=== PATIENT | male | born 1960 | race Caucasian/White ===

== ENCOUNTER 2017-06-28 23:30 | Emergency (ER) | payer OTHER ==
[~2017-06-28] VITALS: Ht 180.3 cm; Wt 102.1 kg
[~2017-06-28 23:30] MED LIST: ALPRAZOLAM2 MG PO; AMLODIPINE BESY10 MG PO; ATENOLOL; ATENOLOL100 MG PO; ATENOLOL50 MG PO; ATORVASTATIN CA10 MG PO; CYCLOBENZAPRINE10 MG PO; FLUOXETINE HCL40 MG PO; LISINOPRIL40 MG PO; LOSARTAN POTAS100 MG PO; MELOXICAM7.5 MG PO; METFORMIN HCL500 MG PO; MONTELUKAST SOD10 MG PO; NORCO 10-325 T1 EACH PO; NORCO 10MG-325MG1 EA PO; OMEPRAZOLE40 MG PO; PAROXETINE HCL20 MG PO; PEGASYS180 MCG/01; PRAVACHOL40 MG PO; PRAVASTATIN SOD40 MG PO; RIBAPAK PO; RITALIN10 MG PO; SOVALDI PO; VIT B COMPLEX PO; XANAX XR2 MG PO
--- OUTSIDE RECORDS SUMMARY | 2017-06-28 23:32 | XMS REPORT ---
Author Author [facility] Address Unknown Phone Unavailable Care Team Providers Care Taxi Dancer Name Role Phone MARY BUTT Unavailable Unavailable LOFTON HILARY Unavailable Unavailable Problems This patient has no known problems. Allergies, Adverse Reactions, Alerts This patient has no known allergies or adverse reactions. Medications This patient has no known medications. Results Test Description Test Time Test Comments Text Results Atomic Results Result Comments CT BRAIN WO [place] [address] Patient Name: DARI JAVIER MR #: [id number] : 1960 Age/Sex: 56/M Req #: [id number] Adm Physician: Ordered by: MARY BUTT MD Report #: [id number] Location: ER Room/Bed: Procedure: [id number] CT/CT BRAIN WO Exam Date: Exam Time: REPORT STATUS: Signed Examination: CT BRAIN WITHOUT CONTRAST History: Confusion. Altered mental status. Comparison studies:Head CT performed January 31, 2017 Technique: Axial images were obtained from the skull base to the vertex. Coronal and sagittal images reconstructed from the axial data. Intravenous contrast: None Findings: Scalp: No abnormalities. Bones: No fractures, blastic or lytic lesions. Brain sulci: Appropriate for age. Ventricles: Normal in size and configuration. No hydrocephalus. Extra-axial space: No abnormalities. Parenchyma: Again demonstrated is hypodensity in the anterior limb of the left internal capsule. No masses , hemorrhage, or acute cortical based vascular insults. Sellar/suprasellar region: No abnormalities. Craniocervical junction: Patent foramen magnum. No Chiari one malformation. Incidental findings: Atherosclerotic calcification of the cavernous and supraclinoid internal carotid arteries. Impression: 1. No new or acute intracranial abnormality. No change from prior head CT performed January 31, 2017. 2. Unchanged chronic lacunar infarct in the left internal capsule. Signed by: Dr. Aparna Macdonald M.D. on 02/05/2017 11:51 AM Dictated By: APARNA MACDONALD MD 1151 Transcribed By: ISATU on 02/05/17 1151 COPY TO: MARY BUTT MD RENAL RETROPERITONEAL COMP [place] [address] Patient Name: DARI JAVIER MR #: [id number] : 1960 Age/Sex: 56/M Req #: [id number] Adm Physician: HILARY LOFTON MD Ordered by: RUBY LOFTON MD Report #: [id number] Location: [facility] Room/Bed: [place] [address] Procedure: [id number] US/US RENAL RETROPERITONEAL COMP Exam Date: 02/01/17 Exam Time: 1612 REPORT STATUS: Signed EXAM: Renal Ultrasound INDICATION: COMPARISON: Abdominal ultrasound from 10/16/[address] abdomen and pelvis from 06/19/2013 TECHNIQUE: Transverse and longitudinal images of the kidneys and bladder were obtained. FINDINGS: Right Kidney: Length: 10.7 cm Appearance: Normal echogenicity. Collecting system: No hydronephrosis Stones: None Cyst/Mass: None Left Kidney: Length: 11.2 cm Appearance: Normal echogenicity. Collecting system: No hydronephrosis Stones: None Cyst/Mass: None Bladder: Normal IMPRESSION: Normal renal ultrasound exam. Signed by: Dr. Shmuel Mina M.D. on 02/01/2017 5:55 PM Dictated By: SHMUEL MINA MD 54 Transcribed By: ISATU on 02/01/171754 COPY TO: RUBY LOFTON MD CT BRAIN WO [place] [address] Patient Name: DARI JAVIER MR #: [id number] : 1960 Age/Sex: 56/M Req #: [id number] Adm Physician: Ordered by: MARY BUTT MD Report #: [id number] Location: ER Room/Bed: Procedure: [id number] CT/CT BRAIN WO Exam Date: 01/31/17 Exam Time: 1830 REPORT STATUS: Signed Examination: CT BRAIN WITHOUT CONTRAST History:Dizziness. Comparison studies:Head CT dated 07/30/2013 Technique : Axial images were obtained from the skull base to the vertex. Coronal and sagittal images reconstructed from the axial data. Intravenous contrast: None Findings: Scalp: No abnormalities. Bones: No fractures, blastic or lytic lesions. Brain sulci: Appropriate for age. Ventricles: Normal in size and configuration. No hydrocephalus. Extra-axial space: No abnormalities. Parenchyma: Again demonstrated is hypodensity of the anterior limb of the left internal capsule. No masses, hemorrhage, or acute or chronic cortical based vascular insults. Sellar/suprasellar region : No abnormalities. Craniocervical junction: Patent foramen magnum. No Chiari one malformation. Incidental findings: None. Impression: 1. No new or acute intracranial abnormalities. No change from prior head CT dated 07/30/2013. 2. Chronic lacunar infarct of the left internal capsule. Signed by: Dr. Aparna Macdonald M.D. on 01/31/2017 6:50 PM Dictated By: APARNA ALARCON MD 49 Transcribed By: ISATU on 01/31/171849 COPY TO: MARY BUTT MD CHEST SINGLE (PORTABLE) [place] [address] Patient Name: DARI JAVIER MR #: [id number] : 1960 Age/Sex: 56/M Req #: [id number] Adm Physician: Ordered by: MARY BUTT MD Report #: [id number] Location: ER Room/Bed: Procedure: [id number] DX/CHEST SINGLE (PORTABLE) Exam Date: 01/31/17 Exam Time: 1830 REPORT STATUS: Signed PROCEDURE: A single AP view of the chest. COMPARISON: Chest radiograph 10/16/2016. INDICATIONS: DIZZY, CHEST PAIN FINDINGS: Lines/tubes: None. Lungs: The lungs are moderately inflated and clear. There is no evidence of pneumonia or pulmonary edema. Pleura: There is no pleural effusion or pneumothorax. Heart and mediastinum: The heart and the mediastinum are unremarkable. Bones: No acute bony abnormality. IMPRESSION: No acute cardiopulmonary disease. Dictated by: Jesus Villa M.D. on 01/31/2017 at 19:08 Electronically approved by: Jesus Villa M.D. on 01/31/2017 at 19:08 Dictated By: JESUS VILLA MD 07 Transcribed By: WU on 01/31/171907 COPY TO: MARY BUTT MD
[2017-06-28] MEDS ORDERED: HYDRALAZINE HCL 20 MG/ML VIAL IV STA (23:42)
[2017-06-28] MEDS ORDERED: CLONIDINE HCL 0.1 MG TAB PO ONE (23:45)
[2017-06-29] LABS: BASOPHILS # (AUTO) 0.1 (0.0-0.1); BASOPHILS % 0.6 % (0.0-1.0); EOSINOPHILS # (AUTO) 0.5 (0.0-0.4); EOSINOPHILS % 5.3 % (0.0-6.0); HEMATOCRIT 39.2 % (38.2-49.6); HEMOGLOBIN 14.1 g/dL (14.0-18.0); LYMPHOCYTES % 30.9 % (18.0-39.1); MEAN CORPUSCULAR HEMOGLOBIN 30.2 pg (28-32); MEAN CORPUSCULAR VOLUME 83.9 fL (81-99); MONOCYTES # (AUTO) 0.7 (0.2-0.8); MONOCYTES % 7.3 % (4.4-11.3); NEUTROPHILS # (AUTO) 5.3 (2.1-6.9); NEUTROPHILS % 55.5 % (38.7-80.0); PLATELET COUNT 112 x10e3/uL (140-360); RED BLOOD COUNT 4.67 x10e6/uL (4.3-5.7); RED CELL DISTRIBUTION WIDTH 13.2 % (11.7-14.4)
[2017-06-29 00:29] LABS: ALANINE AMINOTRANSFERASE 23 IU/L (0-55); ALBUMIN 3.9 g/dL (3.5-5.0); ALBUMIN/GLOBULIN RATIO 1.1 (0.8-2.0); ALKALINE PHOSPHATASE 133 IU/L (40-150); ANION GAP 17.8 mmol/L (8-16); BLOOD UREA NITROGEN 19 mg/dL (7-26); CALCIUM 9.9 mg/dL (8.4-10.2); CARBON DIOXIDE 19 mmol/L (22-29); CHLORIDE 109 mmol/L (98-107); CREATINE KINASE 87 IU/L (30-200); GLUCOSE 181 mg/dL (74-118); POTASSIUM 3.8 mmol/L (3.5-5.1); SODIUM 142 mmol/L (136-145)
--- NOTE | 2017-06-29 00:47 | Diagnostic Imaging Report ---
EXAMINATION: CHEST SINGLE (PORTABLE) INDICATION: Elevated blood pressure COMPARISON: None FINDINGS: TUBES and LINES: None. LUNGS: Lungs are well inflated. Lungs are clear. There is no evidence of pneumonia or pulmonary edema. PLEURA: No pleural effusion or pneumothorax. HEART AND MEDIASTINUM: The cardiomediastinal silhouette is unremarkable. BONES AND SOFT TISSUES: No acute osseous lesion. Soft tissues are unremarkable. UPPER ABDOMEN: No free air under the diaphragm. IMPRESSION: No acute thoracic abnormality. Signed by: Dr. Corby Gonzalez M.D. on 06/29/2017 12:43 AM
[2017-06-29 00:56] LABS: BUN/CREATININE RATIO 16 (6-25); CREATININE, SERUM 1.11 mg/dL (0.72-1.25); EST GLOMERULAR FILTRATION RATE > 60 ML/MIN (60-)
[2017-06-29 01:09] VITALS: BP 178/98
== END 2017-06-29 01:18 | disposition home or self-care (01) ==
LOC: ER 23:30
DX: I10 Essential (primary) hypertension (principal); B19.20 Unspecified viral hepatitis C without hepatic coma; K74.60 Unspecified cirrhosis of liver; F41.9 Anxiety disorder, unspecified
CPT/HCPCS: 36415; 71045; 80053; 82550; 82553; 84484; 85025; 93005; 99284; J0360

== ENCOUNTER → 2017-08-15 | Outpatient (CLI) | payer OTHER ==
--- NOTE | 2017-08-15 11:43 | Diagnostic Imaging Report ---
EXAM: Renal Duplex Ultrasound INDICATION: Ranal artery stenosis? COMPARISON: Ultrasound Renal Doppler dated 02/01/2017. TECHNIQUE: Color Doppler and waveform spectral analysis were obtained of the right and left kidneys. FINDINGS: Aorta PSV = 53.7 cm/sec Right Kidney: Length: 10.9 cm Appearance: Normal echogenicity. Collecting system: No hydronephrosis Stones: None Cyst/Mass: None Main renal artery PSV: Proximal = 166 cm/sec Mid = 97.8 cm/sec Distal = 99 cm/sec Intrarenal (segmental or interlobar) arteries: Acceleration time: Normal Resistive index: Normal RA PSV/aorta PSV ratio (RAR) = 3.1 Left Kidney: Length: 11.8 cm Appearance: Normal echogenicity. Collecting system: No hydronephrosis Stones: None Cyst/Mass: None Main renal artery PSV: Proximal = 118 cm/sec Mid = 117 cm/sec Distal = 95.3 cm/sec Intrarenal (segmental or interlobar) arteries: Acceleration time: Normal Resistive index: Normal RA PSV/aorta PSV ratio (RAR) = 2.2 Main Renal Veins: Flow Present Bladder: Normal. The prostate is not enlarged. IMPRESSION: No evidence of renal artery stenosis or renal thrombosis. Signed by: Dr. Young Pepe M.D. on 08/15/2017 11:39 AM
== END | disposition home or self-care (01) ==
LOC: US 07:21
PROVIDERS: ATTEND Internal Medicine
DX: I95.1 Orthostatic hypotension (principal); R09.89 Other specified symptoms and signs involving the circulatory and respiratory systems
CPT/HCPCS: 93976

== ENCOUNTER → 2018-01-07 | Outpatient (CLI) | payer MEDICARE ==
--- NOTE | 2018-01-07 11:31 | Diagnostic Imaging Report ---
PROCEDURE: L-SPINE COMPLETE AND TWO VIEW RADIOGRAPHS OF THE SACRUM. COMPARISON: None. INDICATIONS: FALL LOWER BACK PAIN FINDINGS: The lumbar spine is in anatomic alignment without evidence of fracture, spondylolisthesis, or spondylolysis. Vertebral body heights are maintained. Mild degenerative disc and facet degenerative changes, most pronounced in the lower lumbar spine. The paraspinal soft tissues are normal. Atherosclerotic aortic calcifications. Dedicated sacral radiographs demonstrate no evidence of fracture or malalignment. CONCLUSION: No acute radiographic abnormalities in the lumbar spine or sacrum. Mild degenerative disc and facet degenerative changes in the lower lumbar spine. Aortic atherosclerosis. Dictated by: CARMEN BHARDWAJ M.D. on 01/07/2018 at 11:40 Electronically approved by: CARMEN BHARDWAJ M.D. on 01/07/2018 at 11:40
--- NOTE | 2018-01-07 11:32 | Diagnostic Imaging Report ---
PROCEDURE:SACRUM X-RAY (TWO VIEWS) COMPARISON:None. FINDINGS/IMPRESSION: No acute radiographic abnormality. Please refer to lumbar spine/sacral radiograph report for further information. Dictated by: CARMEN BHARDWAJ M.D. on 01/07/2018 at 11:41 Electronically approved by: CAREMN BHARDWAJ M.D. on 01/07/2018 at 11:41
== END ==
LOC: RAD 08:20
PROVIDERS: ATTEND Internal Medicine
DX: S39.92XA Unspecified injury of lower back, initial encounter (principal); W19.XXXA Unspecified fall, initial encounter
CPT/HCPCS: 72110; 72220

== ENCOUNTER 2018-05-22 01:40 | Emergency (ER) | payer MEDICARE, OTHER ==
[~2018-05-22] VITALS: Ht 180.3 cm; Wt 102.1 kg
--- OUTSIDE RECORDS SUMMARY | 2018-05-22 01:42 | XMS REPORT | Continuity of Care Document ---
Author Author [facility] Address Unknown Phone Unavailable Problems Problem Status Onset Date Classification Date Reported Comments Source 718.85 - JT CLEO N Active 08/25/2012 GARRY Joyce Benign prostatic hyperplasia with urinary retention Active Problem 06/29/2017 [facility] Dehydration Active Problem 06/29/2017 [facility] Hypotension due to medication Active Problem 06/29/2017 [facility] Pneumonia Active Problem 06/29/2017 [facility] Medications Medication Details Route Status Patient Instructions Ordering Provider Order Date Source Losartan Potassium 100 Mg Tablet, 100 Mg Oral Daily Active 02/03/2017 [facility] Meloxicam 7.5 Mg Tablet, 7.5 Mg Oral Daily Active 02/03/2017 [facility] Alprazolam 2 Mg Tablet, 1 Mg Oral Twice A Day Active 10/16/2016 [facility] Cyclobenzaprine Hcl 10 Mg Tablet, 10 Mg Oral Daily Active 10/16/2016 [facility] Fluoxetine Hcl 40 Mg Capsule, 40 Mg Oral Daily Active 10/16/2016 [facility] Lisinopril 40 Mg Tablet, 40 Mg Oral Daily Active 10/16/2016 [facility] Methylphenidate Hcl (Ritalin) 10 Mg Tablet, 20 Mg Oral Daily Active 10/16/2016 [facility] Omeprazole 40 Mg Capsule.dr, 40 Mg Oral Bid Prior To Meals Active 10/16/2016 [facility] Peginterferon Alban-2A (Pegasys) 180 Mcg/0.5 Ml Kit, 1 Syr As Directed Active 10/16/2016 [facility] Pravastatin Sodium 40 Mg Tablet, 40 Mg Oral Daily Active 10/16/2016 [facility] Ribavirin (Ribapak) 600 Mg Tab.ds.pk, 600 Mg Oral Twice A Day Active 10/16/2016 [facility] Sovaldi 400 Mg Tab, 400 Mg Oral Active 10/16/2016 [facility] Atenolol , Active 08/15/2012 [facility] Amlodipine Besylate 10 Mg Tablet Daily Active [facility] Atenolol 100 Mg Tablet Daily Active [facility] Atorvastatin Calcium 10 Mg Tablet Today At 9:00PM Active [facility] Metformin Hcl 500 Mg Tablet Daily Active [facility] Montelukast Sodium 10 Mg Tablet Daily Active [facility] Paroxetine Hcl 20 Mg Tablet Daily Active [facility] Allergies, Adverse Reactions, Alerts Substance Category Reaction Severity Reaction type Status Date Reported Comments Source Immunizations Immunization Date Given Site Status Last Updated Comments Source Results Order Name Results Value Reference Range Date Interpretation Comments Source Automated blood basophil count (count/volume) Automated blood basophil count (count/volume) 0.1 0.0 - 0.1 06/28/2017 [facility] Automated blood basophil count as percentage of total leukocytes Automated blood basophil count as percentage of total leukocytes 0.6 0.0 - 1.0 06/28/2017 [facility] Automated blood eosinophil count Automated blood eosinophil count 0.5 0.0 - 0.4 06/28/2017 [facility] Automated blood eosinophil count as percentage of total leukocytes Automated blood eosinophil count as percentage of total leukocytes 5.3 0.0 - 6.0 06/28/2017 [facility] Automated blood hematocrit (volume fraction) Automated blood hematocrit (volume fraction) 39.2 38.2 - 49.6 06/28/2017 [facility] Automated blood lymphocyte count as percentage ot total leukocytes Automated blood lymphocyte count as percentage ot total leukocytes 30.9 18.0 - 39.1 06/28/2017 [facility] Automated blood monocyte count as percentage of total leukocytes Automated blood monocyte count as percentage of total leukocytes 7.3 4.4 - 11.3 06/28/2017 [facility] Automated blood neutrophil count Automated blood neutrophil count 5.3 2.1 - 6.9 06/28/2017 [facility] Automated blood platelet count (count/volume) Automated blood platelet count (count/volume) 112 140 - 360 06/28/2017 [facility] Automated blood segmented neutrophil count as percentage of total leukocytes Automated blood segmented neutrophil count as percentage of total leukocytes 55.5 38.7 - 80.0 06/28/2017 [facility] Automated erythrocyte mean corpuscular hemoglobin (mass per erythrocyte) Automated erythrocyte mean corpuscular hemoglobin (mass per erythrocyte) 30.2 28 - 32 06/28/2017 [facility] Automated erythrocyte mean corpuscular hemoglobin concentration measurement (mass/volume) Automated erythrocyte mean corpuscular hemoglobin concentration measurement (mass/volume) 36.0 31 - 35 06/28/2017 [facility] Automated erythrocyte mean corpuscular volume Automated erythrocyte mean corpuscular volume 83.9 81 - 99 06/28/2017 [facility] Blood erythrocytes automated count (number/volume) Blood erythrocytes automated count (number/volume) 4.67 4.3 - 5.7 06/28/2017 [facility] Blood hemoglobin measurement (moles/volume) Blood hemoglobin measurement (moles/volume) 14.1 14.0 - 18.0 06/28/2017 [facility] Blood leukocytes automated count (number/volume) Blood leukocytes automated count (number/volume) 9.59 4.8 - 10.8 06/28/2017 [facility] Blood lymphocytes count (number/volume) Blood lymphocytes count (number/volume) 3.0 1.0 - 3.2 06/28/2017 [facility] Blood monocytes automated count (number/volume) Blood monocytes automated count (number/volume) 0.7 0.2 - 0.8 06/28/2017 [facility] Estimated glomerular filtration rate (GFR) determination Estimated glomerular filtration rate (GFR) determination null 60 06/28/2017 [facility] Glucose measurement Glucose measurement 181 74 - 118 06/28/2017 [facility] Plasma globulin measurement (mass/volume) Plasma globulin measurement (mass/volume) 3.4 2.3 - 3.5 06/28/2017 [facility] Serum or plasma alanine aminotransferase measurement (enzymatic activity/volume) Serum or plasma alanine aminotransferase measurement (enzymatic activity/volume) 23 0 - 55 06/28/2017 [facility] Serum or plasma albumin measurement (mass/volume) Serum or plasma albumin measurement (mass/volume) 3.9 3.5 - 5.0 06/28/2017 [facility] Serum or plasma albumin/globulin mass ratio Serum or plasma albumin/globulin mass ratio 1.1 0.8 - 2.0 06/28/2017 [facility] Serum or plasma alkaline phosphatase measurement (enzymatic activity/volume) Serum or plasma alkaline phosphatase measurement (enzymatic activity/volume) 133 40 - 150 06/28/2017 [facility] Serum or plasma anion gap Serum or plasma anion gap 17.8 8 - 16 06/28/2017 [facility] Serum or plasma calcium measurement (mass/volume) Serum or plasma calcium measurement (mass/volume) 9.9 8.4 - 10.2 06/28/2017 [facility] Serum or plasma carbon dioxide, total measurement (moles/volume) Serum or plasma carbon dioxide, total measurement (moles/volume) 19 22 - 29 06/28/2017 [facility] Serum or plasma chloride measurement (moles/volume) Serum or plasma chloride measurement (moles/volume) 109 98 - 107 06/28/2017 [facility] Serum or plasma creatine kinase MB measurement (mass/volume) Serum or plasma creatine kinase MB measurement (mass/volume) 1.30 0 - 5.0 06/28/2017 [facility] Serum or plasma creatine kinase measurement (enzymatic activity/volume) Serum or plasma creatine kinase measurement (enzymatic activity/volume) 87 30 - 200 06/28/2017 [facility] Serum or plasma creatinine measurement (mass/volume) Serum or plasma creatinine measurement (mass/volume) 1.11 0.72 - 1.25 06/28/2017 [facility] Serum or plasma potassium measurement (moles/volume) Serum or plasma potassium measurement (moles/volume) 3.8 3.5 - 5.1 06/28/2017 [facility] Serum or plasma protein measurement (mass/volume) Serum or plasma protein measurement (mass/volume) 7.3 6.5 - 8.1 06/28/2017 [facility] Serum or plasma sodium measurement (moles/volume) Serum or plasma sodium measurement (moles/volume) 142 136 - 145 06/28/2017 [facility] Serum or plasma total bilirubin measurement (mass/volume) Serum or plasma total bilirubin measurement (mass/volume) 0.6 0.2 - 1.2 06/28/2017 [facility] Serum or plasma urea nitrogen measurement (mass/volume) Serum or plasma urea nitrogen measurement (mass/volume) 19 7 - 26 06/28/2017 [facility] Serum or plasma urea nitrogen/creatinine mass ratio Serum or plasma urea nitrogen/creatinine mass ratio 16 6 - 25 06/28/2017 [facility] Troponin I measurement by highly sensitive enzyme immunoassay Troponin I measurement by highly sensitive enzyme immunoassay null 0 - 0.300 06/28/2017 [facility] Red Cell Distribution Width 13.2 11.7 - 14.4 06/28/2017 [facility] IM GRANULOCYTES % 0.4 0.0 - 1.0 06/28/2017 [facility] Absolute Immature Granulocyte (auto 0.04 0 - 0.1 06/28/2017 [facility] Aspartate Amino Transf (AST/SGOT) 24 5 - 34 06/28/2017 [facility] Automated urine sediment leukocyte count by microscopy (number/high power field) Automated urine sediment leukocyte count by microscopy (number/high power field) null 0 - 5 02/05/2017 [facility] Bacteria detection in urine sediment by light microscopy Bacteria detection in urine sediment by light microscopy NONE NONE 02/05/2017 [facility] Epithelial cells detection in urine sediment by light microscopy Epithelial cells detection in urine sediment by light microscopy NONE NONE 02/05/2017 [facility] Erythrocytes detection in urine sediment by light microscopy Erythrocytes detection in urine sediment by light microscopy null 0 - 5 02/05/2017 [facility] Mucus detection in urine sediment by light microscopy Mucus detection in urine sediment by light microscopy FEW RARE 02/05/2017 [facility] Specific gravity of Urine by Test strip Specific gravity of Urine by Test strip 1.010 1.010 - 1.025 02/05/2017 [facility] Urine clarity Urine clarity CLEAR CLEAR 02/05/2017 [facility] Urine color determination Urine color determination YELLOW YELLOW 02/05/2017 [facility] Urine erythrocytes detection Urine erythrocytes detection NEGATIVE NEGATIVE 02/05/2017 [facility] Urine glucose detection Urine glucose detection NEGATIVE NEGATIVE 02/05/2017 [facility] Urine ketones detection by automated test strip Urine ketones detection by automated test strip NEGATIVE NEGATIVE 02/05/2017 [facility] Urine leukocyte esterase detection by dipstick Urine leukocyte esterase detection by dipstick NEGATIVE NEGATIVE 02/05/2017 [facility] Urine nitrite detection Urine nitrite detection NEGATIVE NEGATIVE 02/05/2017 [facility] Urine pH measurement by automated test strip Urine pH measurement by automated test strip 6.5 5 - 7 02/05/2017 [facility] Urine protein measurement by test strip (mass/volume) Urine protein measurement by test strip (mass/volume) NEGATIVE NEGATIVE 02/05/2017 [facility] Urine total bilirubin measurement (mass/volume) Urine total bilirubin measurement (mass/volume) NEGATIVE NEGATIVE 02/05/2017 [facility] Urine urobilinogen measurement by test strip (mass/volume) Urine urobilinogen measurement by test strip (mass/volume) 0.2 0.2 - 1 02/05/2017 [facility] Ammonia 47 31 - 123 02/05/2017 [facility] Activated partial thromboplastin time (aPTT) in platelet poor plasma bycoagulation assay Activated partial thromboplastin time (aPTT) in platelet poor plasma bycoagulation assay 26.5 23.8 - 35.5 02/05/2017 [facility] INR in Platelet poor plasma by Coagulation assay INR in Platelet poor plasma by Coagulation assay 0.97 02/05/2017 [facility] Prothrombin time (PT) in platelet poor plasma by coagulation assay Prothrombin time (PT) in platelet poor plasma by coagulation assay 13.4 11.9 - 14.5 02/05/2017 [facility] Serum or plasma thyrotropin measurement by detection limit <=0.005 miu/l (units/volume) Serum or plasma thyrotropin measurement by detection limit <=0.005 miu/l (units/volume) 1.329 0.350 - 4.940 02/05/2017 [facility] Capillary blood glucose measurement by glucometer (mass/volume) Capillary blood glucose measurement by glucometer (mass/volume) 125 70 - 120 02/03/2017 [facility] B-Type Natriuretic Peptide 13.3 0 - 100 01/31/2017 [facility] WBC casts detection in urine sediment by light microscopy WBC casts detection in urine sediment by light microscopy null 0 10/16/2016 [facility] Blood culture Blood culture NO GROWTH AFTER 5 DAYS, FINAL REPORT 10/16/2016 [facility] Vital Signs Vital Sign Value Date Comments Source Encounters Location Location Details Encounter Type Encounter Number Reason For Visit Attending Provider ADM Date DC Date Status Source Outpatient [id number] [facility] 07/26/2015 [facility] Out[facility] [id number] [facility] 09/13/2015 [facility] Outpatient [id number] [facility] 11/03/2015 [facility] Discharged Inpatient [id number] HILARY LOFTON MD 10/16/2016 10/18/2016 [facility] Discharged Inpatient (obs) [id number] HILARY LOFTON MD 01/31/2017 02/03/2017 [facility] Departed Emergency Room [id number] MARY BUTT MD 02/05/2017 02/05/2017 [facility] Departed Emergency Room [id number] MILTON BADILLO MD 06/28/2017 06/29/2017 [facility] Procedures Procedure Code Date Perfomer Comments Source Computed tomography of brain without radiopaque contrast [id number] 02/05/2017 [facility] Ultrasound, renal [id number] 02/01/2017 [facility] INSERT TEMP BLADDER CATH [id number] 01/31/2017 [facility] Computed tomography of brain without radiopaque contrast [id number] 01/31/2017 [facility] Computed tomography of chest with contrast [id number] 10/16/2016 [facility] US abdomen complete [id number] 10/16/2016 [facility]
[2018-05-22 02:51] LABS: BASOPHILS % 0.3 % (0.0-1.0); EOSINOPHILS # (AUTO) 0.2 (0.0-0.4); EOSINOPHILS % 2.6 % (0.0-6.0); HEMATOCRIT 41.9 % (38.2-49.6); HEMOGLOBIN 14.3 g/dL (14.0-18.0); LYMPHOCYTES # (AUTO) 2.2 (1.0-3.2); MEAN CORPUSCULAR HEMOGLOBIN 29.1 pg (28-32); MEAN CORPUSCULAR HGB CONC 34.1 g/dL (31-35); MEAN CORPUSCULAR VOLUME 85.2 fL (81-99); MONOCYTES # (AUTO) 0.7 (0.2-0.8); MONOCYTES % 8.3 % (4.4-11.3); NEUTROPHILS # (AUTO) 5.4 (2.1-6.9); NEUTROPHILS % 62.2 % (38.7-80.0); PLATELET COUNT 146 x10e3/uL (140-360); RED BLOOD COUNT 4.92 x10e6/uL (4.3-5.7); RED CELL DISTRIBUTION WIDTH 13.4 % (11.7-14.4)
[2018-05-22 02:54] LABS: CLARITY,URINE CLEAR (CLEAR); COLOR,URINE YELLOW (YELLOW)
[2018-05-22 02:55] LABS: BILIRUBIN,URINE NEGATIVE (NEGATIVE); KETONES,URINE NEGATIVE (NEGATIVE); LEUKOCYTE ESTERASE ,URINE NEGATIVE (NEGATIVE); NITRITE,URINE NEGATIVE (NEGATIVE); PROTEIN,URINE DIPSTICK NEGATIVE (NEGATIVE); URINE UROBILINOGEN 0.2 mg/dL (0.2 - 1)
[2018-05-22 02:59] LABS: INR 0.91; PARTIAL THROMBOPLASTIN TIME 30.4 seconds (23.8-35.5); PROTHROMBIN TIME 12.7 seconds (11.9-14.5)
[2018-05-22 03:09] LABS: ALBUMIN 4.2 g/dL (3.5-5.0); ALBUMIN/GLOBULIN RATIO 1.2 (0.8-2.0); ANION GAP 13.8 mmol/L (8-16); BACTERIA,URINE RARE /HPF; CALCIUM 9.9 mg/dL (8.4-10.2); CREATININE, SERUM 1.36 mg/dL (0.72-1.25); EPITHELIAL CELLS,URINE RARE /LPF; POTASSIUM 3.8 mmol/L (3.5-5.1); RBC,URINE 0-5 /HPF (0-5); WBC,URINE (MAN) 0-5 /HPF (0-5)
[2018-05-22 03:15] LABS: CREATINE KINASE MB 1.1 ng/mL (0-5.0)
[2018-05-22] MEDS ORDERED: HYDRALAZINE HCL25 MG PO (03:41)
[2018-05-22] MEDS ORDERED: LACTULOSE10 GM/151 PO (03:41)
[2018-05-22] MEDS ORDERED: CYCLOBENZAPRINE10 MG PO (03:41)
[2018-05-22] MEDS ORDERED: FENOFIBRATE145 MG PO (03:41)
[2018-05-22] MEDS ORDERED: FLOMAX0.4 MG PO (03:41)
[2018-05-22] MEDS ORDERED: LOSARTAN POTAS100 MG PO (03:41)
[2018-05-22] MEDS ORDERED: FLUOXETINE HCL20 M1 PO (03:41)
--- NOTE | 2018-05-22 03:44 | Diagnostic Imaging Report ---
Examination: Single AP view of the chest. COMPARISON: Portable chest 06/29/2017 INDICATION: Low blood pressure, chest pain IMPRESSION: 1. Lines and Tubes: None 2. Lungs are grossly clear. No consolidation or effusion. 3. Cardiomediastinal silhouette is normal. Pulmonary vasculature is normal. 4. No acute bony abnormalities. Signed by: Dr. Stephen Whitmore M.D. on 05/22/2018 3:41 AM
[2018-05-22] MEDS ORDERED: SODIUM CHLORIDE 0.9% 1000ML 1,000 ML IV SCH (05:15)
[2018-05-22 07:47] VITALS: BP 114/80
== END 2018-05-22 07:48 | disposition home or self-care (01) ==
LOC: ER 01:40
DX: R55 Syncope and collapse (principal); R53.1 Weakness; I10 Essential (primary) hypertension; E11.9 Type 2 diabetes mellitus without complications; K76.9 Liver disease, unspecified
CPT/HCPCS: 36415; 71045; 80053; 81001; 82550; 82553; 83880; 84484; 85025; 85610; 85730; 93005; 99284

== ENCOUNTER → 2018-10-15 | Day surgery (SDC) | payer MEDICARE ==
[2018-10-14 09:57] LABS: BASOPHILS # (AUTO) 0.1 (0.0-0.1); BASOPHILS % 0.5 % (0.0-1.0); EOSINOPHILS # (AUTO) 0.2 (0.0-0.4); EOSINOPHILS % 2.2 % (0.0-6.0); HEMATOCRIT 42.2 % (38.2-49.6); HEMOGLOBIN 14.3 g/dL (14.0-18.0); LYMPHOCYTES # (AUTO) 1.8 (1.0-3.2); MEAN CORPUSCULAR HEMOGLOBIN 27.2 pg (28-32); MEAN CORPUSCULAR HGB CONC 33.9 g/dL (31-35); MEAN CORPUSCULAR VOLUME 80.2 fL (81-99); MONOCYTES # (AUTO) 0.6 (0.2-0.8); MONOCYTES % 5.9 % (4.4-11.3); NEUTROPHILS # (AUTO) 6.6 (2.1-6.9); NEUTROPHILS % 71.6 % (38.7-80.0); PLATELET COUNT 175 x10e3/uL (140-360); RED BLOOD COUNT 5.26 x10e6/uL (4.3-5.7); RED CELL DISTRIBUTION WIDTH 13.4 % (11.7-14.4)
[2018-10-14 10:19] LABS: ALANINE AMINOTRANSFERASE 9 IU/L (0-55); ALBUMIN 4.5 g/dL (3.5-5.0); ALBUMIN/GLOBULIN RATIO 1.6 (0.8-2.0); ALKALINE PHOSPHATASE 50 IU/L (40-150); ANION GAP 15.9 mmol/L (8-16); BLOOD UREA NITROGEN 15 mg/dL (7-26); BUN/CREATININE RATIO 12 (6-25); CALCIUM 9.7 mg/dL (8.4-10.2); CARBON DIOXIDE 22 mmol/L (22-29); CHLORIDE 102 mmol/L (98-107); CREATININE, SERUM 1.22 mg/dL (0.72-1.25); EST GLOMERULAR FILTRATION RATE > 60 ML/MIN (60-); GLUCOSE 145 mg/dL (74-118); POTASSIUM 3.9 mmol/L (3.5-5.1); SODIUM 136 mmol/L (136-145)
[2018-10-14 10:39] LABS: INR 1.05; PROTHROMBIN TIME 14.2 seconds (11.9-14.5)
[2018-10-14 10:40] LABS: PARTIAL THROMBOPLASTIN TIME 27.5 seconds (23.8-35.5)
[~2018-10-15] MED LIST changes: +FENOFIBRATE145 MG PO; +FENTANYL CITRATE/PF 100MCG/2 ML INJ ONE; +FLOMAX0.4 MG PO; +FLUOXETINE HCL20 M1 PO; +HYDRALAZINE HCL25 MG PO; +HYDROXYZINE HCL25 MG PO; +LACTULOSE10 GM/151 PO; +MIDAZOLAM HCL 2 MG/2 ML VIAL ONE; +PROPOFOL IV EMULSION 10 MG/ML 50 ML VIAL ONE
--- OUTSIDE RECORDS SUMMARY | 2018-10-15 05:49 | XMS REPORT | Continuity of Care Document ---
Author Author [employer] Organization [employer] Address Unknown Phone Unavailable Care Team Providers Care Heel Packer Name Role Phone Trunk Show Information [employer] Unavailable Unavailable Problems Problem Status Onset Date Classification Date Reported Comments Source 718.85 - JT CLEO N Active 08/25/2012 GARRY Joyce Benign prostatic hyperplasia with urinary retention Active Problem 05/22/2018 [facility] Dehydration Active Problem 05/22/2018 [facility] Hypotension due to medication Active Problem 05/22/2018 [facility] Pneumonia Active Problem 05/22/2018 [facility] Medications Medication Details Route Status Patient Instructions Ordering Provider Order Date Source Paroxetine Hcl 20 Mg Tablet, 20 Mg Oral Daily Active 05/22/2018 [facility] Losartan Potassium 100 Mg Tablet, 100 Mg Oral Daily Active 02/03/2017 [facility] Meloxicam 7.5 Mg Tablet, 7.5 Mg Oral Daily Active 02/03/2017 [facility] Losartan Potassium 100 Mg Tablet, 100 Mg Oral Daily Active 02/03/2017 [facility] Meloxicam 7.5 Mg Tablet, 7.5 Mg Oral Daily Active 02/03/2017 [facility] Alprazolam 2 Mg Tablet, 1 Mg Oral Twice A Day Active 10/16/2016 [facility] Cyclobenzaprine Hcl 10 Mg Tablet, 10 Mg Oral Daily Active 10/16/2016 [facility] Fluoxetine Hcl 40 Mg Capsule, 40 Mg Oral Daily Active 10/16/2016 [facility] Lisinopril 40 Mg Tablet, 40 Mg Oral Daily Active 10/16/2016 [facility] Methylphenidate Hcl (Ritalin) 10 Mg Tablet, 20 Mg Oral Daily Active 10/16/2016 [facility] Omeprazole 40 Mg Capsule., 40 Mg Oral Bid Prior To Meals Active 10/16/2016 [facility] Peginterferon Alban-2A (Pegasys) 180 Mcg/0.5 Ml Kit, 1 Syr As Directed Active 10/16/2016 [facility] Pravastatin Sodium 40 Mg Tablet, 40 Mg Oral Daily Active 10/16/2016 [facility] Ribavirin (Ribapak) 600 Mg Tab.ds.pk, 600 Mg Oral Twice A Day Active 10/16/2016 [facility] Sovaldi 400 Mg Tab, 400 Mg Oral Active 10/16/2016 [facility] Alprazolam 2 Mg Tablet, 1 Mg Oral Twice A Day Active 10/16/2016 [facility] Cyclobenzaprine Hcl 10 Mg Tablet, 10 Mg Oral Daily Active 10/16/2016 [facility] Fluoxetine Hcl 40 Mg Capsule, 40 Mg Oral Daily Active 10/16/2016 [facility] Lisinopril 40 Mg Tablet, 40 Mg Oral Daily Active 10/16/2016 [facility] Methylphenidate Hcl (Ritalin) 10 Mg Tablet, 20 Mg Oral Daily Active 10/16/2016 [facility] Omeprazole 40 Mg Capsule., 40 Mg Oral Bid Prior To Meals Active 10/16/2016 [facility] Pravastatin Sodium 40 Mg Tablet, 40 Mg Oral Daily Active 10/16/2016 [facility] Ribavirin (Ribapak) 600 Mg Tab.ds.pk, 600 Mg Oral Twice A Day Active 10/16/2016 [facility] Atenolol , Active 08/15/2012 [facility] Amlodipine Besylate 10 Mg Tablet Daily Active [facility] Atenolol 100 Mg Tablet Daily Active [facility] Atorvastatin Calcium 10 Mg Tablet Today At 9:00PM Active [facility] Cyclobenzaprine Hcl 10 Mg Tablet Twice A Day Active [facility] Fenofibrate Nanocrystallized (Fenofibrate) 145 Mg Tablet Daily Active [facility] Fluoxetine Hcl 20 Mg Tablet Daily Active [facility] Hydralazine Hcl 25 Mg Tab Bedtime Active [facility] Lactulose 10 Gm/15 Ml Solution Four Times Daily Active 10GM/15ML [facility] Losartan Potassium 100 Mg Tablet Daily Active [facility] Metformin Hcl 500 Mg Tablet Twice Daily With Meals Active [facility] Montelukast Sodium 10 Mg Tablet Daily Active [facility] Tamsulosin Hcl (Flomax*) 0.4 Mg Cap Daily Active [facility] Amlodipine Besylate 10 Mg Tablet Daily Active [facility] Atenolol 100 Mg Tablet Daily Active [facility] Atorvastatin Calcium 10 Mg Tablet Today At 9:00PM Active [facility] Metformin Hcl 500 Mg Tablet Daily Active [facility] Montelukast Sodium 10 Mg Tablet Daily Active [facility] Paroxetine Hcl 20 Mg Tablet Daily Active [facility] Allergies, Adverse Reactions, Alerts No Known Medication Allergies Immunizations No Data Provided for This Section Results Order Name Results Value Reference Range Date Interpretation Comments Source Blood leukocytes automated count (number/volume) 8.59 4.8 - 10.8 05/22/2018 [facility] Blood erythrocytes automated count (number/volume) 4.92 4.3 - 5.7 05/22/2018 [facility] Blood hemoglobin measurement (moles/volume) 14.3 14.0 - 18.0 05/22/2018 [facility] Automated blood hematocrit (volume fraction) 41.9 38.2 - 49.6 05/22/2018 [facility] Automated erythrocyte mean corpuscular volume 85.2 81 - 99 05/22/2018 [facility] Automated erythrocyte mean corpuscular hemoglobin (mass per erythrocyte) 29.1 28 - 32 05/22/2018 [facility] Automated erythrocyte mean corpuscular hemoglobin concentration measurement (mass/volume) 34.1 31 - 35 05/22/2018 [facility] RDW BldCo-Rto 13.4 11.7 - 14.4 05/22/2018 [facility] Automated blood platelet count (count/volume) 146 140 - 360 05/22/2018 [facility] Automated blood segmented neutrophil count as percentage of total leukocytes 62.2 38.7 - 80.0 05/22/2018 [facility] Automated blood lymphocyte count as percentage ot total leukocytes 26.0 18.0 - 39.1 05/22/2018 [facility] Automated blood monocyte count as percentage of total leukocytes 8.3 4.4 - 11.3 05/22/2018 [facility] Automated blood eosinophil count as percentage of total leukocytes 2.6 0.0 - 6.0 05/22/2018 [facility] Automated blood basophil count as percentage of total leukocytes 0.3 0.0 - 1.0 05/22/2018 [facility] IM GRANULOCYTES % 0.6 0.0 - 1.0 05/22/2018 [facility] Automated blood neutrophil count 5.4 2.1 - 6.9 05/22/2018 [facility] Blood lymphocytes count (number/volume) 2.2 1.0 - 3.2 05/22/2018 [facility] Blood monocytes automated count (number/volume) 0.7 0.2 - 0.8 05/22/2018 [facility] Automated blood eosinophil count 0.2 0.0 - 0.4 05/22/2018 [facility] Automated blood basophil count (count/volume) 0.0 0.0 - 0.1 05/22/2018 [facility] Absolute Immature Granulocyte (auto 0.05 0 - 0.1 05/22/2018 [facility] Prothrombin time (PT) in platelet poor plasma by coagulation assay 12.7 11.9 - 14.5 05/22/2018 [facility] INR in Platelet poor plasma by Coagulation assay 0.91 05/22/2018 [facility] Activated partial thromboplastin time (aPTT) in platelet poor plasma bycoagulation assay 30.4 23.8 - 35.5 05/22/2018 [facility] Urine color determination YELLOW YELLOW 05/22/2018 [facility] Urine clarity CLEAR CLEAR 05/22/2018 [facility] Specific gravity of Urine by Test strip 1.005 1.010 - 1.025 05/22/2018 [facility] Urine pH measurement by automated test strip 6 5 - 7 05/22/2018 [facility] Urine leukocyte esterase detection by dipstick NEGATIVE NEGATIVE 05/22/2018 [facility] Urine nitrite detection NEGATIVE NEGATIVE 05/22/2018 [facility] Urine protein measurement by test strip (mass/volume) NEGATIVE NEGATIVE 05/22/2018 [facility] Urine glucose detection NEGATIVE NEGATIVE 05/22/2018 [facility] Urine ketones detection by automated test strip NEGATIVE NEGATIVE 05/22/2018 [facility] Urine urobilinogen measurement by test strip (mass/volume) 0.2 0.2 - 1 05/22/2018 [facility] Urine total bilirubin measurement (mass/volume) NEGATIVE NEGATIVE 05/22/2018 [facility] Urine erythrocytes detection NEGATIVE NEGATIVE 05/22/2018 [facility] Automated urine sediment leukocyte count by microscopy (number/high power field) 0-5 0 - 5 05/22/2018 [facility] Erythrocytes detection in urine sediment by light microscopy 0-5 0 - 5 05/22/2018 [facility] Bacteria detection in urine sediment by light microscopy RARE NONE 05/22/2018 [facility] Epithelial cells detection in urine sediment by light microscopy RARE NONE 05/22/2018 [facility] Serum or plasma sodium measurement (moles/volume) 137 136 - 145 05/22/2018 [facility] Serum or plasma potassium measurement (moles/volume) 3.8 3.5 - 5.1 05/22/2018 [facility] Serum or plasma chloride measurement (moles/volume) 104 98 - 107 05/22/2018 [facility] Serum or plasma carbon dioxide, total measurement (moles/volume) 23 22 - 29 05/22/2018 [facility] Serum or plasma anion gap 13.8 8 - 16 05/22/2018 [facility] Serum or plasma urea nitrogen measurement (mass/volume) 13 7 - 26 05/22/2018 [facility] Serum or plasma creatinine measurement (mass/volume) 1.36 0.72 - 1.25 05/22/2018 [facility] Serum or plasma urea nitrogen/creatinine mass ratio 10 6 - 25 05/22/2018 [facility] Estimated glomerular filtration rate (GFR) determination 54 60 05/22/2018 [facility] Glucose measurement 152 74 - 118 05/22/2018 [facility] Serum or plasma calcium measurement (mass/volume) 9.9 8.4 - 10.2 05/22/2018 [facility] Serum or plasma total bilirubin measurement (mass/volume) 0.5 0.2 - 1.2 05/22/2018 [facility] Aspartate Amino Transf (AST/SGOT) 16 5 - 34 05/22/2018 [facility] Serum or plasma alanine aminotransferase measurement (enzymatic activity/volume) 11 0 - 55 05/22/2018 [facility] Serum or plasma protein measurement (mass/volume) 7.6 6.5 - 8.1 05/22/2018 [facility] Serum or plasma albumin measurement (mass/volume) 4.2 3.5 - 5.0 05/22/2018 [facility] Plasma globulin measurement (mass/volume) 3.4 2.3 - 3.5 05/22/2018 [facility] Serum or plasma albumin/globulin mass ratio 1.2 0.8 - 2.0 05/22/2018 [facility] Serum or plasma alkaline phosphatase measurement (enzymatic activity/volume) 72 40 - 150 05/22/2018 [facility] BNP Bld-mCnc < 10.0 0 - 100 05/22/2018 [facility] Serum or plasma creatine kinase measurement (enzymatic activity/volume) 48 30 - 200 05/22/2018 [facility] Serum or plasma creatine kinase MB measurement (mass/volume) 1.10 0 - 5.0 05/22/2018 [facility] Troponin I measurement by highly sensitive enzyme immunoassay 0.007 0 - 0.300 05/22/2018 [facility] Automated blood basophil count (count/volume) Automated blood basophil count (count/volume) 0.1 0.0 - 0.1 06/28/2017 [facility] Automated blood basophil count as percentage of total leukocytes Automated blood basophil count as percentage of total leukocytes 0.6 0.0 - 1.0 06/28/2017 [facility] Automated blood eosinophil count Automated blood eosinophil count 0.5 0.0 - 0.4 06/28/2017 [facility] Automated blood eosinophil count as percentage of total leukocytes Automated blood eosinophil count as percentage of total leukocytes 5.3 0.0 - 6.0 06/28/2017 [facility] Automated blood hematocrit (volume fraction) Automated blood hematocrit (volume fraction) 39.2 38.2 - 49.6 06/28/2017 [facility] Automated blood lymphocyte count as percentage ot total leukocytes Automated blood lymphocyte count as percentage ot total leukocytes 30.9 18.0 - 39.1 06/28/2017 [facility] Automated blood monocyte count as percentage of total leukocytes Automated blood monocyte count as percentage of total leukocytes 7.3 4.4 - 11.3 06/28/2017 [facility] Automated blood neutrophil count Automated blood neutrophil count 5.3 2.1 - 6.9 06/28/2017 [facility] Automated blood platelet count (count/volume) Automated blood platelet count (count/volume) 112 140 - 360 06/28/2017 [facility] Automated blood segmented neutrophil count as percentage of total leukocytes Automated blood segmented neutrophil count as percentage of total leukocytes 55.5 38.7 - 80.0 06/28/2017 [facility] Automated erythrocyte mean corpuscular hemoglobin (mass per erythrocyte) Automated erythrocyte mean corpuscular hemoglobin (mass per erythrocyte) 30.2 28 - 32 06/28/2017 [facility] Automated erythrocyte mean corpuscular hemoglobin concentration measurement (mass/volume) Automated erythrocyte mean corpuscular hemoglobin concentration measurement (mass/volume) 36.0 31 - 35 06/28/2017 [facility] Automated erythrocyte mean corpuscular volume Automated erythrocyte mean corpuscular volume 83.9 81 - 99 06/28/2017 [facility] Blood erythrocytes automated count (number/volume) Blood erythrocytes automated count (number/volume) 4.67 4.3 - 5.7 06/28/2017 [facility] Blood hemoglobin measurement (moles/volume) Blood hemoglobin measurement (moles/volume) 14.1 14.0 - 18.0 06/28/2017 [facility] Blood leukocytes automated count (number/volume) Blood leukocytes automated count (number/volume) 9.59 4.8 - 10.8 06/28/2017 [facility] Blood lymphocytes count (number/volume) Blood lymphocytes count (number/volume) 3.0 1.0 - 3.2 06/28/2017 [facility] Blood monocytes automated count (number/volume) Blood monocytes automated count (number/volume) 0.7 0.2 - 0.8 06/28/2017 [facility] Estimated glomerular filtration rate (GFR) determination Estimated glomerular filtration rate (GFR) determination >60 60 06/28/2017 [facility] Glucose measurement Glucose measurement 181 74 - 118 06/28/2017 [facility] Plasma globulin measurement (mass/volume) Plasma globulin measurement (mass/volume) 3.4 2.3 - 3.5 06/28/2017 [facility] Serum or plasma alanine aminotransferase measurement (enzymatic activity/volume) Serum or plasma alanine aminotransferase measurement (enzymatic activity/volume) 23 0 - 55 06/28/2017 [facility] Serum or plasma albumin measurement (mass/volume) Serum or plasma albumin measurement (mass/volume) 3.9 3.5 - 5.0 06/28/2017 [facility] Serum or plasma albumin/globulin mass ratio Serum or plasma albumin/globulin mass ratio 1.1 0.8 - 2.0 06/28/2017 [facility] Serum or plasma alkaline phosphatase measurement (enzymatic activity/volume) Serum or plasma alkaline phosphatase measurement (enzymatic activity/volume) 133 40 - 150 06/28/2017 [facility] Serum or plasma anion gap Serum or plasma anion gap 17.8 8 - 16 06/28/2017 [facility] Serum or plasma calcium measurement (mass/volume) Serum or plasma calcium measurement (mass/volume) 9.9 8.4 - 10.2 06/28/2017 [facility] Serum or plasma carbon dioxide, total measurement (moles/volume) Serum or plasma carbon dioxide, total measurement (moles/volume) 19 22 - 29 06/28/2017 [facility] Serum or plasma chloride measurement (moles/volume) Serum or plasma chloride measurement (moles/volume) 109 98 - 107 06/28/2017 [facility] Serum or plasma creatine kinase MB measurement (mass/volume) Serum or plasma creatine kinase MB measurement (mass/volume) 1.30 0 - 5.0 06/28/2017 [facility] Serum or plasma creatine kinase measurement (enzymatic activity/volume) Serum or plasma creatine kinase measurement (enzymatic activity/volume) 87 30 - 200 06/28/2017 [facility] Serum or plasma creatinine measurement (mass/volume) Serum or plasma creatinine measurement (mass/volume) 1.11 0.72 - 1.25 06/28/2017 [facility] Serum or plasma potassium measurement (moles/volume) Serum or plasma potassium measurement (moles/volume) 3.8 3.5 - 5.1 06/28/2017 [facility] Serum or plasma protein measurement (mass/volume) Serum or plasma protein measurement (mass/volume) 7.3 6.5 - 8.1 06/28/2017 [facility] Serum or plasma sodium measurement (moles/volume) Serum or plasma sodium measurement (moles/volume) 142 136 - 145 06/28/2017 [facility] Serum or plasma total bilirubin measurement (mass/volume) Serum or plasma total bilirubin measurement (mass/volume) 0.6 0.2 - 1.2 06/28/2017 [facility] Serum or plasma urea nitrogen measurement (mass/volume) Serum or plasma urea nitrogen measurement (mass/volume) 19 7 - 26 06/28/2017 [facility] Serum or plasma urea nitrogen/creatinine mass ratio Serum or plasma urea nitrogen/creatinine mass ratio 16 6 - 25 06/28/2017 [facility] Troponin I measurement by highly sensitive enzyme immunoassay Troponin I measurement by highly sensitive enzyme immunoassay <0.001 0 - 0.300 06/28/2017 [facility] Red Cell Distribution Width 13.2 11.7 - 14.4 06/28/2017 [facility] IM GRANULOCYTES % 0.4 0.0 - 1.0 06/28/2017 [facility] Absolute Immature Granulocyte (auto 0.04 0 - 0.1 06/28/2017 [facility] Aspartate Amino Transf (AST/SGOT) 24 5 - 34 06/28/2017 [facility] Automated urine sediment leukocyte count by microscopy (number/high power field) Automated urine sediment leukocyte count by microscopy (number/high power field) <5 0 - 5 02/05/2017 [facility] Bacteria detection in urine sediment by light microscopy Bacteria detection in urine sediment by light microscopy NONE NONE 02/05/2017 [facility] Epithelial cells detection in urine sediment by light microscopy Epithelial cells detection in urine sediment by light microscopy NONE NONE 02/05/2017 [facility] Erythrocytes detection in urine sediment by light microscopy Erythrocytes detection in urine sediment by light microscopy <5 0 - 5 02/05/2017 [facility] Mucus detection in urine sediment by light microscopy Mucus detection in urine sediment by light microscopy FEW RARE 02/05/2017 [facility] Specific gravity of Urine by Test strip Specific gravity of Urine by Test strip 1.010 1.010 - 1.025 02/05/2017 [facility] Urine clarity Urine clarity CLEAR CLEAR 02/05/2017 [facility] Urine color determination Urine color determination YELLOW YELLOW 02/05/2017 [facility] Urine erythrocytes detection Urine erythrocytes detection NEGATIVE NEGATIVE 02/05/2017 [facility] Urine glucose detection Urine glucose detection NEGATIVE NEGATIVE 02/05/2017 [facility] Urine ketones detection by automated test strip Urine ketones detection by automated test strip NEGATIVE NEGATIVE 02/05/2017 [facility] Urine leukocyte esterase detection by dipstick Urine leukocyte esterase detection by dipstick NEGATIVE NEGATIVE 02/05/2017 [facility] Urine nitrite detection Urine nitrite detection NEGATIVE NEGATIVE 02/05/2017 [facility] Urine pH measurement by automated test strip Urine pH measurement by automated test strip 6.5 5 - 7 02/05/2017 [facility] Urine protein measurement by test strip (mass/volume) Urine protein measurement by test strip (mass/volume) NEGATIVE NEGATIVE 02/05/2017 [facility] Urine total bilirubin measurement (mass/volume) Urine total bilirubin measurement (mass/volume) NEGATIVE NEGATIVE 02/05/2017 [facility] Urine urobilinogen measurement by test strip (mass/volume) Urine urobilinogen measurement by test strip (mass/volume) 0.2 0.2 - 1 02/05/2017 [facility] Ammonia 47 31 - 123 02/05/2017 [facility] Activated partial thromboplastin time (aPTT) in platelet poor plasma bycoagulation assay Activated partial thromboplastin time (aPTT) in platelet poor plasma bycoagulation assay 26.5 23.8 - 35.5 02/05/2017 [facility] INR in Platelet poor plasma by Coagulation assay INR in Platelet poor plasma by Coagulation assay 0.97 02/05/2017 [facility] Prothrombin time (PT) in platelet poor plasma by coagulation assay Prothrombin time (PT) in platelet poor plasma by coagulation assay 13.4 11.9 - 14.5 02/05/2017 [facility] Serum or plasma thyrotropin measurement by detection limit <=0.005 miu/l (units/volume) Serum or plasma thyrotropin measurement by detection limit <=0.005 miu/l (units/volume) 1.329 0.350 - 4.940 02/05/2017 [facility] Capillary blood glucose measurement by glucometer (mass/volume) Capillary blood glucose measurement by glucometer (mass/volume) 125 70 - 120 02/03/2017 [facility] B-Type Natriuretic Peptide 13.3 0 - 100 01/31/2017 [facility] WBC casts detection in urine sediment by light microscopy WBC casts detection in urine sediment by light microscopy <10 0 10/16/2016 [facility] Blood culture Blood culture NO GROWTH AFTER 5 DAYS, FINAL REPORT 10/16/2016 [facility] Pathology Reports No Data Provided for This Section Diagnostic Reports No Data Provided for This Section Consultation Notes No Data Provided for This Section Discharge Summaries No Data Provided for This Section History and Physicals No Data Provided for This Section Vital Signs No Data Provided for This Section Encounters Location Location Details Encounter Type Encounter Number Reason For Visit Attending Provider ADM Date DC Date Status Source Outpatient [id number] [facility]2015 [id number] [id number] [facility] 11/03/2015 Active [facility] Discharged Inpatient [id number] HILARY HERNANDEZ MD 10/16/2016 10/18/2016 [facility] Discharged Inpatient (obs) [id number] HILARY HERNANDEZ MD 01/31/2017 02/03/2017 [facility] Departed Emergency Room [id number] MARY BUTT MD 02/05/2017 02/05/2017 [facility] Departed Emergency Room [id number] MILTON BADILLO MD 06/28/2017 06/29/2017 [facility] [id number] HILARY HERNANDEZ MD 08/15/2017 [facility] [id number] HILARY HERNANDEZ MD 01/07/2018 [facility] Departed Emergency Room [id number] JAJA CHRISTIANSEN MD 05/22/2018 05/22/2018 [facility] Procedures Procedure Code Date Perfomer Comments Source US Doppler renal vessels limited [id number] 08/15/2017 [facility] Computed tomography of brain without radiopaque contrast [id number] 02/05/2017 [facility] Ultrasound, renal [id number] 02/01/2017 [facility] INSERT TEMP BLADDER CATH [id number] 01/31/2017 [facility] Computed tomography of brain without radiopaque contrast [id number] 01/31/2017 [facility] Computed tomography of chest with contrast [id number] 10/16/2016 [facility] US abdomen complete [id number] 10/16/2016 [facility] Assessment and Plan No Data Provided for This Section Plan of Care Plan of Care Date Source Discharge Date 05/22/18 7:48am Disposition HOME, SELF-CARE Condition at Discharge Stable Instructions/Education Provided Dizziness Forms Provided Work/School Excuse Prescriptions See Medication Section Referrals HIALRY HERNANDEZ MD Order Date: Call for an appointment Address: [address] [place], [place] [id number] Additional Instructions/Education 1. Please see Dr. Hernandez in clinic today 05/22/2018 [facility] Discharge Date 06/29/17 1:18am Disposition HOME, SELF-CARE Condition at Discharge Stable Instructions/Education Provided Hypertension Forms Provided Work/School Excuse Prescriptions See Medication Section Additional Instructions/Education FOLLOW UP WITH YOUR DOCTOR ON FRIDAY TAKE YOUR MEDICATIONS DIRECTED 06/29/2017 [facility] Social History Social History Date Source Social History Problem Response Recorded Date/Time Onset Date Status Hx Psychiatric Problems Yes 01/31/2017 11:51pm Not Applicable Not Applicable Hx Eating Disorder No 01/31/2017 11:51pm Not Applicable Not Applicable Hx Substance Use Disorder No 01/31/2017 11:51pm Not Applicable Not Applicable Hx Depression Yes 01/31/2017 11:51pm Not Applicable Not Applicable 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 No 01/31/17 11:51pm Do you have a Directive to Physician? No 05/22/18 3:18am Do you have a Medical Power of Industrial Workers? No 05/22/18 3:18am Do you have an out of hospital Do Not Resuscitate Order? No 05/22/18 3:18am Do you have any special needs we should be aware of? No 05/22/18 3:18am Do you have a support person here with you today? Yes 05/22/18 3:18am Did patient receive Notice of Privacy Practices? Yes 05/22/18 3:18am Did patient receive patient rights and responsibilities? Yes 05/22/18 3:18am 05/22/2018 [facility] Advance Directives Advance Directives Directive Response Recorded Date/Time Does the patient have an advance directive? No 01/31/17 11:51pm If yes, is advance directive on file with [facility]? No 01/31/17 11:51pm If not on file with [facility] will patient provide a copy? No 01/31/17 11:51pm Do you have a Directive to Physician? No 06/28/17 11:29pm Do you have a Medical Power of Industrial Workers? No 06/28/17 11:29pm Do you have an out of hospital Do Not Resuscitate Order? No 06/28/17 11:29pm Do you have any special needs we should be aware of? No 06/28/17 11:29pm Do you have a support person here with you today? Yes 06/28/17 11:29pm Did patient receive Notice of Privacy Practices? Yes 06/28/17 11:29pm Did patient receive patient rights and responsibilities? Yes 06/28/17 11:29pm 06/29/2017 [facility] Functional Status No Data Provided for This Section
[2018-10-15 10:30] VITALS: BP 123/89
--- NOTE | 2018-10-15 15:28 | Operative Report ---
DATE OF PROCEDURE: 10/15/2018 SURGEON: Dom Isaac MD PROCEDURE PERFORMED: Colonoscopy. PREOPERATIVE DIAGNOSIS: History of colon polyps. POSTOPERATIVE DIAGNOSIS: Colon polyps and colon ulcer. PREOPERATIVE MEDICATIONS: Consisted of MAC anesthesia. PROCEDURE IN DETAIL: Using an Olympus [employer] video colonoscope, it was inserted in the patient's rectum and advanced without difficulty to the level of cecum. The cecum was documented. At this point, we did see ulcerations on the wall opposite the ileocecal valve. Biopsies were obtained. No other ulcerations were seen throughout the colon. In the ascending colon was a 4 mm size polyp, which was removed with hot biopsy forceps. In the transverse colon, there were 6 polyps, one was 8 mm and removed with electrical snare cautery. The other 7 were between 4 and 5 mm and removed with the hot biopsy forceps. The descending colon, sigmoid colon, and rectum were otherwise normal. The colonoscope was withdrawn from the patient's rectum and the procedure was ended. In completion, there were benign colon polyps, which have been removed and the area of ulceration in the cecum, which was biopsied, reports are pending. Dom Isaac MD SAF/MODL /[id number]
== END | disposition home or self-care (01) ==
LOC: OR 05:45
PROVIDERS: ATTEND Internal Medicine Gastroenterology
DX: Z09 Encounter for follow-up examination after completed treatment for conditions other than malignant neoplasm (principal); D12.2 Benign neoplasm of ascending colon; D12.3 Benign neoplasm of transverse colon; K63.3 Ulcer of intestine; K74.60 Unspecified cirrhosis of liver; B18.2 Chronic viral hepatitis C; E11.22 Type 2 diabetes mellitus with diabetic chronic kidney disease; I12.9 Hypertensive chronic kidney disease with stage 1 through stage 4 chronic kidney disease, or unspecified chronic kidney disease; N18.9 Chronic kidney disease, unspecified; E78.5 Hyperlipidemia, unspecified; F41.9 Anxiety disorder, unspecified; F32.9 Major depressive disorder, single episode, unspecified; Z01.810 Encounter for preprocedural cardiovascular examination; Z01.812 Encounter for preprocedural laboratory examination; Z79.84 Long term (current) use of oral hypoglycemic drugs; Z68.34 Body mass index [BMI] 34.0-34.9, adult
CPT/HCPCS: 36415 ×2; 45380; 45384; 45385; 80053; 82948; 85025; 85610; 85730; 93005; J2250; J2704; J3010; 45378

== ENCOUNTER 2020-08-11 22:33 | Inpatient (IN) | payer MEDICARE ==
[~2020-08-11] VITALS: Ht 180.3 cm; Wt 102.1 kg
[~2020-08-11 22:33] MED LIST changes: -FENTANYL CITRATE/PF 100MCG/2 ML INJ ONE; -MIDAZOLAM HCL 2 MG/2 ML VIAL ONE; -PROPOFOL IV EMULSION 10 MG/ML 50 ML VIAL ONE
[2020-08-11] MEDS ORDERED: CEFTRIAXONE 1 GM VIAL IV ONE (23:00)
[2020-08-11] MEDS ORDERED: CEFTRIAXONE 1 GM in SODIUM CHLORIDE 0.9% 50ML 50 ML IV ONE (23:00)
[2020-08-11] MEDS ORDERED: ACETAMINOPHEN 325 MG TAB PO ONE (23:00)
[2020-08-11] MEDS ORDERED: AZITHROMYCIN 500MG/NS 250 ML 250 ML IV ONE (23:00)
[2020-08-11 23:07] LABS: BASOPHILS % 0.3 % (0.0-1.0); EOSINOPHILS # (AUTO) 0.1 (0.0-0.4); EOSINOPHILS % 1.2 % (0.0-6.0); HEMATOCRIT 34.2 % (38.2-49.6); HEMOGLOBIN 11.2 g/dL (14.0-18.0); LYMPHOCYTES # (AUTO) 0.5 (1.0-3.2); LYMPHOCYTES % 4.7 % (18.0-39.1); MEAN CORPUSCULAR HEMOGLOBIN 27.3 pg (28-32); MEAN CORPUSCULAR HGB CONC 32.7 g/dL (31-35); MEAN CORPUSCULAR VOLUME 83.4 fL (81-99); MONOCYTES # (AUTO) 0.5 (0.2-0.8); MONOCYTES % 4.6 % (4.4-11.3); NEUTROPHILS # (AUTO) 9.6 (2.1-6.9); NEUTROPHILS % 88.4 % (38.7-80.0); PLATELET COUNT 134 x10e3/uL (140-360); RED CELL DISTRIBUTION WIDTH 15.3 % (11.7-14.4)
[2020-08-11 23:15] LABS: INR 0.99; PROTHROMBIN TIME 13.7 seconds (11.9-14.5)
[2020-08-11 23:25] LABS: ALANINE AMINOTRANSFERASE 10 IU/L (0-55); ALBUMIN 3.5 g/dL (3.5-5.0); ALKALINE PHOSPHATASE 51 IU/L (40-150); ANION GAP 19.8 mmol/L (8-16); BLOOD UREA NITROGEN 12 mg/dL (7-26); BUN/CREATININE RATIO 7 (6-25); CARBON DIOXIDE 20 mmol/L (22-29); CHLORIDE 102 mmol/L (98-107); CREATINE KINASE 164 IU/L (30-200); CREATININE, SERUM 1.66 mg/dL (0.72-1.25); EST GLOMERULAR FILTRATION RATE 43 ML/MIN (60-); GLUCOSE 281 mg/dL (74-118); POTASSIUM 3.8 mmol/L (3.5-5.1); SODIUM 138 mmol/L (136-145)
[2020-08-11 23:29] LABS: B-TYPE NATRIURETIC PEPTIDE2 28.6 pg/mL (0-100)
[2020-08-11] MEDS ORDERED: SODIUM CHLORIDE 0.9% 1000ML 1,000 ML IV ONE (23:30)
[2020-08-12] VITALS (9 sets, daily range): BP systolic 120–149; BP diastolic 74–123
[2020-08-12] MEDS ORDERED: ACETAMINOPHEN 325 MG TAB PO PRN ×2 (02:00→12:00)
[2020-08-12] MEDS ORDERED: DEXTROSE 50% SYRINGE 50 ML IV PRN ×2 (02:00→12:00)
[2020-08-12] MEDS: SODIUM CHLORIDE 0.9% 1000ML 1,000 ML IV SCH ×2 (02:00→10:29)
[2020-08-12] MEDS: ALBUTEROL SULF 0.083% NEB SOLN 3 ML NEB NEB SCH ×6 (03:55→23:10)
[2020-08-12] MEDS: IPRATROPIUM BROMIDE 0.02% 2.5 ML NEB NEB SCH ×4 (03:55→19:40)
[2020-08-12] MEDS ORDERED: LASIX20 MG PO (06:46)
[2020-08-12] MEDS ORDERED: GLIPIZIDE5 MG PO (06:46)
[2020-08-12] MEDS ORDERED: OMEGA 3 1,0001 EACH PO (06:46)
[2020-08-12] MEDS ORDERED: METOPROLOL SUCC50 MG PO (06:46)
[2020-08-12] MEDS ORDERED: FARXIGA5 MG PO (06:46)
[2020-08-12] MEDS ORDERED: NEURONTIN300 MG PO (06:46)
[2020-08-12] MEDS ORDERED: CLONAZEPAM0.5 MG PO (06:46)
[2020-08-12] MEDS ORDERED: CLONIDINE HCL0.1 MG PO (06:46)
[2020-08-12] MEDS ORDERED: ASPIRIN81 MG PO (06:46)
[2020-08-12] MEDS ORDERED: ALBUTEROL0.63 MG/3 NEB (06:46)
[2020-08-12] MEDS: INSULIN REGULAR, HUMAN 100 UNIT/1 ML 3ML VIAL SQ SCH ×4 (08:05→21:30)
[2020-08-12 08:26] LABS: CREATINE KINASE 364 IU/L (30-200)
[2020-08-12] MEDS ORDERED: LIDOCAINE 4% PATCH TP PRN (12:00)
[2020-08-12] MEDS ORDERED: DOCUSATE SODIUM 100 MG CAP PO PRN (12:00)
[2020-08-12] MEDS ORDERED: POTASSIUM CHLORIDE 20 MEQ TAB CR PO PRN (12:00)
[2020-08-12] MEDS ORDERED: PREDNISONE 20 MG TAB PO NR (12:00)
[2020-08-12] MEDS ORDERED: ONDANSETRON HCL INJ 2MG/ML 2ML 2 MG/ML VIAL IV PRN (12:00)
[2020-08-12] MEDS ORDERED: CEFTRIAXONE 1 GM in SODIUM CHLORIDE 0.9% 50ML 50 ML IV SCH (12:00)
[2020-08-12] MEDS ORDERED: BENZONATATE 100 MG CAP PO PRN ×2 (12:00)
[2020-08-12] MEDS ORDERED: ALBUTEROL/IPRATROPIUM 3 ML NEB NEB PRN (12:00)
[2020-08-12 12:02] LABS: BASOPHILS % 0.3 % (0.0-1.0); EOSINOPHILS # (AUTO) 0.1 (0.0-0.4); EOSINOPHILS % 0.9 % (0.0-6.0); HEMOGLOBIN 10.4 g/dL (14.0-18.0); LYMPHOCYTES # (AUTO) 0.7 (1.0-3.2); LYMPHOCYTES % 6.1 % (18.0-39.1); MEAN CORPUSCULAR HEMOGLOBIN 27.6 pg (28-32); MEAN CORPUSCULAR HGB CONC 32.5 g/dL (31-35); MEAN CORPUSCULAR VOLUME 84.9 fL (81-99); MONOCYTES # (AUTO) 0.6 (0.2-0.8); MONOCYTES % 4.8 % (4.4-11.3); NEUTROPHILS % 86.9 % (38.7-80.0); PLATELET COUNT 136 x10e3/uL (140-360); RED BLOOD COUNT 3.77 x10e6/uL (4.3-5.7); RED CELL DISTRIBUTION WIDTH 15.8 % (11.7-14.4)
[2020-08-12] MEDS: METOPROLOL SUCCINATE 50 MG TAB XL PO SCH (12:12)
[2020-08-12] MEDS: LACTULOSE SYRUP 20 GM/30 ML UDC PO SCH (12:38)
[2020-08-12] MEDS: ASPIRIN 81 MG CHEW TAB PO SCH (12:39)
[2020-08-12] MEDS: FLUOXETINE HCL 20 MG CAP PO SCH (12:39)
[2020-08-12] MEDS: TAMSULOSIN HCL 0.4 MG CAP PO SCH (12:39)
[2020-08-12] MEDS: FENOFIBRATE 145 MG TAB PO SCH (12:40)
[2020-08-12] MEDS: DIPHENHYDRAMINE HCL 25 MG CAP PO PRN (12:41)
[2020-08-12] MEDS: CLONAZEPAM 0.5 MG TAB PO PRN ×2 (12:41→23:47)
[2020-08-12] MEDS: HYDROCODONE/APAP 5MG-325MG TAB PO PRN ×2 (12:42→21:30)
[2020-08-12 14:14] LABS: BASOPHILS % 0.2 % (0.0-1.0); EOSINOPHILS # (AUTO) 0.1 (0.0-0.4); EOSINOPHILS % 1.5 % (0.0-6.0); HEMATOCRIT 29.2 % (38.2-49.6); HEMOGLOBIN 9.8 g/dL (14.0-18.0); LYMPHOCYTES # (AUTO) 0.5 (1.0-3.2); LYMPHOCYTES % 5.5 % (18.0-39.1); MEAN CORPUSCULAR HEMOGLOBIN 27.7 pg (28-32); MEAN CORPUSCULAR HGB CONC 33.6 g/dL (31-35); MEAN CORPUSCULAR VOLUME 82.5 fL (81-99); MONOCYTES # (AUTO) 0.5 (0.2-0.8); MONOCYTES % 5.7 % (4.4-11.3); NEUTROPHILS % 85.6 % (38.7-80.0); PLATELET COUNT 136 x10e3/uL (140-360); RED BLOOD COUNT 3.54 x10e6/uL (4.3-5.7); RED CELL DISTRIBUTION WIDTH 15.3 % (11.7-14.4)
[2020-08-12 14:31] LABS: ALBUMIN 3.1 g/dL (3.5-5.0); ALBUMIN/GLOBULIN RATIO 0.9 (0.8-2.0); ANION GAP 13.6 mmol/L (8-16); CALCIUM 8.6 mg/dL (8.4-10.2); CREATININE, SERUM 1.3 mg/dL (0.72-1.25); POTASSIUM 3.6 mmol/L (3.5-5.1)
[2020-08-12] MEDS ORDERED: SODIUM CHLORIDE 0.9% 50ML 50 ML ONE (17:16)
[2020-08-12] MEDS ORDERED: IOPAMIDOL 370 MG/ML 200 ML INFUS..BTL INJ ONE (17:16)
[2020-08-12 17:19] LABS: CREATINE KINASE 379 IU/L (30-200)
[2020-08-12] MEDS: ENOXAPARIN SOD INJ 40 MG/0.4 ML SYR SC SCH (19:24)
[2020-08-12] MEDS ORDERED: SODIUM CHLORIDE 0.9% 1000ML 500 ML IV SCH (20:00)
[2020-08-12] MEDS: CEFTRIAXONE 1 GM in SODIUM CHLORIDE 0.9% 50ML 50 ML IV SCH (21:00)
[2020-08-12] MEDS: AZITHROMYCIN 500MG/SOD CHL 0.9% 250ML BAG IV SCH (21:45)
[2020-08-13] VITALS (7 sets, daily range): BP systolic 132–155; BP diastolic 84–100
[2020-08-13] MEDS: ALBUTEROL SULF 0.083% NEB SOLN 3 ML NEB NEB SCH ×2 (03:15→07:50)
[2020-08-13] MEDS: IPRATROPIUM BROMIDE 0.02% 2.5 ML NEB NEB SCH ×4 (03:15→19:10)
[2020-08-13] MEDS: ACETAMINOPHEN 325 MG TAB PO PRN (06:51)
[2020-08-13] MEDS: INSULIN REGULAR, HUMAN 100 UNIT/1 ML 3ML VIAL SQ SCH ×4 (07:30→21:00)
[2020-08-13] MEDS: PANTOPRAZOLE SOD 40 MG TABEC PO SCH (07:30)
[2020-08-13] MEDS: LACTULOSE SYRUP 20 GM/30 ML UDC PO SCH (09:07)
[2020-08-13] MEDS: ASPIRIN 81 MG CHEW TAB PO SCH (09:08)
[2020-08-13] MEDS: METOPROLOL SUCCINATE 50 MG TAB XL PO SCH (09:08)
[2020-08-13] MEDS: TAMSULOSIN HCL 0.4 MG CAP PO SCH (09:08)
[2020-08-13] MEDS: FLUOXETINE HCL 20 MG CAP PO SCH (09:08)
[2020-08-13] MEDS: FENOFIBRATE 145 MG TAB PO SCH (09:08)
[2020-08-13] MEDS ORDERED: LEVALBUTEROL HCL SOLN NEBU 0.63 MG/3 ML NEB INH PRN (09:45)
[2020-08-13] MEDS ORDERED: MAGNESIUM HYDROXIDE 30 ML UDC PO PRN (09:45)
[2020-08-13] MEDS: HYDROCODONE/APAP 5MG-325MG TAB PO PRN (10:40)
[2020-08-13] MEDS ORDERED: CLONAZEPAM 0.5 MG TAB PO NR (13:00)
[2020-08-13] MEDS ORDERED: CLONAZEPAM 0.5 MG TAB PO PRN (13:45)
[2020-08-13] MEDS ORDERED: AZITHROMYCIN 500MG/NS 250 ML 250 ML IV SCH (13:45)
[2020-08-13] MEDS: DOCUSATE SODIUM 100 MG CAP PO SCH (16:20)
[2020-08-13] MEDS: ENOXAPARIN SOD INJ 40 MG/0.4 ML SYR SC SCH (16:20)
[2020-08-13] MEDS ORDERED: PROAIR DIGIHAL90 MCG INH (18:39)
[2020-08-13] MEDS ORDERED: AMLODIPINE BESY10 MG PO (18:39)
[2020-08-13] MEDS: AZITHROMYCIN 500MG/SOD CHL 0.9% 250ML BAG IV SCH (21:00)
[2020-08-13] MEDS: CEFTRIAXONE 1 GM in SODIUM CHLORIDE 0.9% 50ML 50 ML IV SCH (21:31)
[2020-08-13] MEDS ORDERED: CLONAZEPAM 0.5 MG TAB PO ONE (23:45)
[2020-08-14] MEDS: IPRATROPIUM BROMIDE 0.02% 2.5 ML NEB NEB SCH ×4 (01:20→19:15)
[2020-08-14 05:10] VITALS: BP 174/91
[2020-08-14 05:30] LABS: BASOPHILS % 0.3 % (0.0-1.0); EOSINOPHILS # (AUTO) 0.1 (0.0-0.4); EOSINOPHILS % 0.7 % (0.0-6.0); HEMATOCRIT 31.6 % (38.2-49.6); HEMOGLOBIN 10.5 g/dL (14.0-18.0); LYMPHOCYTES # (AUTO) 0.9 (1.0-3.2); LYMPHOCYTES % 7.7 % (18.0-39.1); MEAN CORPUSCULAR HEMOGLOBIN 27.1 pg (28-32); MEAN CORPUSCULAR HGB CONC 33.2 g/dL (31-35); MEAN CORPUSCULAR VOLUME 81.7 fL (81-99); MONOCYTES % 8.9 % (4.4-11.3); NEUTROPHILS # (AUTO) 9.1 (2.1-6.9); NEUTROPHILS % 79.6 % (38.7-80.0); PLATELET COUNT 205 x10e3/uL (140-360); RED BLOOD COUNT 3.87 x10e6/uL (4.3-5.7); RED CELL DISTRIBUTION WIDTH 15.3 % (11.7-14.4)
[2020-08-14 05:41] LABS: BLOOD UREA NITROGEN 13 mg/dL (7-26); BUN/CREATININE RATIO 11 (6-25); CALCIUM 9.1 mg/dL (8.4-10.2); CARBON DIOXIDE 20 mmol/L (22-29); CHLORIDE 104 mmol/L (98-107); EST GLOMERULAR FILTRATION RATE > 60 ML/MIN (60-); GLUCOSE 195 mg/dL (74-118); SODIUM 136 mmol/L (136-145)
[2020-08-14] MEDS: HYDRALAZINE HCL 20 MG/ML VIAL IV PRN (06:25)
[2020-08-14] MEDS: INSULIN REGULAR, HUMAN 100 UNIT/1 ML 3ML VIAL SQ SCH ×5 (07:30→21:00)
[2020-08-14] MEDS ORDERED: ONDANSETRON HCL 4 MG ORAL DISINTEGRATING TAB PO PRN (08:00)
[2020-08-14 08:15] VITALS: BP 155/94
[2020-08-14] MEDS: HYDROCODONE/APAP 5MG-325MG TAB PO PRN (08:28)
[2020-08-14] MEDS: PANTOPRAZOLE SOD 40 MG TABEC PO SCH (08:37)
[2020-08-14] MEDS: LACTULOSE SYRUP 20 GM/30 ML UDC PO SCH (08:37)
[2020-08-14] MEDS: DOCUSATE SODIUM 100 MG CAP PO SCH ×2 (08:37→17:50)
[2020-08-14] MEDS: METOPROLOL SUCCINATE 50 MG TAB XL PO SCH (08:38)
[2020-08-14 11:58] VITALS: BP 168/92
[2020-08-14] MEDS ORDERED: CLONAZEPAM 0.5 MG TAB PO SCH (14:30)
[2020-08-14 16:04] VITALS: BP 159/95
[2020-08-14] MEDS: ENOXAPARIN SOD INJ 40 MG/0.4 ML SYR SC SCH (17:50)
[2020-08-14] MEDS: DOXYCYCLINE HYCLATE TABLET 100 MG TAB PO SCH (19:07)
[2020-08-14 20:00] VITALS: BP 130/91
[2020-08-14 21:00] VITALS: BP 130/91
[2020-08-14] MEDS: SALIVA SUBSTITUTE 45 ML LIQD MM SCH (21:00)
[2020-08-14] MEDS ORDERED: AZITHROMYCIN 500MG/NS 250 ML 250 ML IV SCH (21:00)
[2020-08-14] MEDS: CEFTRIAXONE 1 GM in SODIUM CHLORIDE 0.9% 50ML 50 ML IV SCH (21:17)
[2020-08-14] MEDS: CLONAZEPAM 1 MG TAB PO PRN (21:24)
[2020-08-14] MEDS: MELATONIN 5 MG TABLET PO PRN (23:48)
[2020-08-15] VITALS (9 sets, daily range): BP systolic 118–176; BP diastolic 84–112
[2020-08-15] MEDS: IPRATROPIUM BROMIDE 0.02% 2.5 ML NEB NEB SCH ×4 (01:20→19:20)
[2020-08-15] MEDS: HYDRALAZINE HCL 20 MG/ML VIAL IV PRN (01:25)
[2020-08-15] MEDS: DIPHENHYDRAMINE HCL 25 MG CAP PO PRN (02:27)
[2020-08-15] MEDS: CLONAZEPAM 1 MG TAB PO PRN ×2 (05:58→16:25)
[2020-08-15] MEDS: INSULIN REGULAR, HUMAN 100 UNIT/1 ML 3ML VIAL SQ SCH ×4 (07:30→21:00)
[2020-08-15] MEDS: SALIVA SUBSTITUTE 45 ML LIQD MM SCH ×4 (07:30→22:22)
[2020-08-15] MEDS: FENOFIBRATE 145 MG TAB PO SCH (08:45)
[2020-08-15] MEDS: ASPIRIN 81 MG CHEW TAB PO SCH (08:45)
[2020-08-15] MEDS: DOCUSATE SODIUM 100 MG CAP PO SCH ×2 (08:45→16:39)
[2020-08-15] MEDS: PANTOPRAZOLE SOD 40 MG TABEC PO SCH (08:45)
[2020-08-15] MEDS: LACTULOSE SYRUP 20 GM/30 ML UDC PO SCH (08:45)
[2020-08-15] MEDS: FLUOXETINE HCL 20 MG CAP PO SCH (08:45)
[2020-08-15] MEDS: DOXYCYCLINE HYCLATE TABLET 100 MG TAB PO SCH ×2 (08:45→22:20)
[2020-08-15] MEDS: TAMSULOSIN HCL 0.4 MG CAP PO SCH (08:45)
[2020-08-15] MEDS: METOPROLOL SUCCINATE 50 MG TAB XL PO SCH (08:45)
[2020-08-15] MEDS: ENOXAPARIN SOD INJ 40 MG/0.4 ML SYR SC SCH (16:39)
[2020-08-15] MEDS: CEFTRIAXONE 1 GM in SODIUM CHLORIDE 0.9% 50ML 50 ML IV SCH (22:20)
[2020-08-15] MEDS: MELATONIN 5 MG TABLET PO PRN (22:22)
[2020-08-16] VITALS (8 sets, daily range): BP systolic 143–160; BP diastolic 87–105
[2020-08-16] MEDS: IPRATROPIUM BROMIDE 0.02% 2.5 ML NEB NEB SCH ×4 (01:50→19:10)
[2020-08-16] MEDS: SALIVA SUBSTITUTE 45 ML LIQD MM SCH ×4 (08:24→21:49)
[2020-08-16] MEDS: PANTOPRAZOLE SOD 40 MG TABEC PO SCH (08:24)
[2020-08-16] MEDS: INSULIN REGULAR, HUMAN 100 UNIT/1 ML 3ML VIAL SQ SCH ×4 (08:26→21:00)
[2020-08-16] MEDS: CLONAZEPAM 1 MG TAB PO PRN ×2 (08:30→22:23)
[2020-08-16] MEDS: TAMSULOSIN HCL 0.4 MG CAP PO SCH (09:39)
[2020-08-16] MEDS: ASPIRIN 81 MG CHEW TAB PO SCH (09:39)
[2020-08-16] MEDS: FLUOXETINE HCL 20 MG CAP PO SCH (09:39)
[2020-08-16] MEDS: DOCUSATE SODIUM 100 MG CAP PO SCH ×2 (09:39→16:44)
[2020-08-16] MEDS: LACTULOSE SYRUP 20 GM/30 ML UDC PO SCH (09:39)
[2020-08-16] MEDS: METOPROLOL SUCCINATE 50 MG TAB XL PO SCH (09:40)
[2020-08-16] MEDS: FENOFIBRATE 145 MG TAB PO SCH (09:40)
[2020-08-16] MEDS: DOXYCYCLINE HYCLATE TABLET 100 MG TAB PO SCH ×2 (09:40→21:50)
[2020-08-16] MEDS: LOSARTAN POTASSIUM 100 MG TAB PO SCH (12:27)
[2020-08-16] MEDS ORDERED: FUROSEMIDE INJ 10 MG/ML 4 ML VIAL IV ONE (12:30)
[2020-08-16] MEDS: ENOXAPARIN SOD INJ 40 MG/0.4 ML SYR SC SCH (16:44)
[2020-08-16] MEDS: CEFTRIAXONE 1 GM in SODIUM CHLORIDE 0.9% 50ML 50 ML IV SCH (21:56)
[2020-08-17] MEDS: IPRATROPIUM BROMIDE 0.02% 2.5 ML NEB NEB SCH ×5 (00:20→19:40)
[2020-08-17] MEDS: MELATONIN 5 MG TABLET PO PRN (01:00)
[2020-08-17 04:58] VITALS: BP 154/93
[2020-08-17 05:05] LABS: BASOPHILS % 0.5 % (0.0-1.0); EOSINOPHILS # (AUTO) 0.2 (0.0-0.4); EOSINOPHILS % 2.5 % (0.0-6.0); HEMATOCRIT 35.4 % (38.2-49.6); HEMOGLOBIN 11.8 g/dL (14.0-18.0); LYMPHOCYTES # (AUTO) 1.3 (1.0-3.2); LYMPHOCYTES % 17.7 % (18.0-39.1); MEAN CORPUSCULAR HEMOGLOBIN 27.1 pg (28-32); MEAN CORPUSCULAR HGB CONC 33.3 g/dL (31-35); MEAN CORPUSCULAR VOLUME 81.2 fL (81-99); MONOCYTES # (AUTO) 0.6 (0.2-0.8); MONOCYTES % 8.4 % (4.4-11.3); NEUTROPHILS # (AUTO) 4.6 (2.1-6.9); NEUTROPHILS % 61.1 % (38.7-80.0); PLATELET COUNT 232 x10e3/uL (140-360); RED BLOOD COUNT 4.36 x10e6/uL (4.3-5.7); RED CELL DISTRIBUTION WIDTH 14.9 % (11.7-14.4)
[2020-08-17 05:37] LABS: ALANINE AMINOTRANSFERASE 27 IU/L (0-55); ALBUMIN 2.9 g/dL (3.5-5.0); ALBUMIN/GLOBULIN RATIO 0.8 (0.8-2.0); ALKALINE PHOSPHATASE 54 IU/L (40-150); ANION GAP 13.7 mmol/L (8-16); BLOOD UREA NITROGEN 12 mg/dL (7-26); BUN/CREATININE RATIO 12 (6-25); CARBON DIOXIDE 21 mmol/L (22-29); CHLORIDE 107 mmol/L (98-107); EST GLOMERULAR FILTRATION RATE > 60 ML/MIN (60-); GLUCOSE 150 mg/dL (74-118); POTASSIUM 3.7 mmol/L (3.5-5.1); SODIUM 138 mmol/L (136-145)
[2020-08-17] MEDS: SALIVA SUBSTITUTE 45 ML LIQD MM SCH ×4 (08:10→20:43)
[2020-08-17] MEDS: INSULIN REGULAR, HUMAN 100 UNIT/1 ML 3ML VIAL SQ SCH ×4 (08:12→21:00)
[2020-08-17] MEDS: PANTOPRAZOLE SOD 40 MG TABEC PO SCH (08:20)
[2020-08-17] MEDS: ASPIRIN 81 MG CHEW TAB PO SCH (08:21)
[2020-08-17] MEDS: LOSARTAN POTASSIUM 100 MG TAB PO SCH (08:21)
[2020-08-17] MEDS: DOCUSATE SODIUM 100 MG CAP PO SCH ×2 (08:21→16:40)
[2020-08-17] MEDS: LACTULOSE SYRUP 20 GM/30 ML UDC PO SCH (08:21)
[2020-08-17] MEDS: FLUOXETINE HCL 20 MG CAP PO SCH (08:21)
[2020-08-17] MEDS: TAMSULOSIN HCL 0.4 MG CAP PO SCH (08:21)
[2020-08-17] MEDS: FENOFIBRATE 145 MG TAB PO SCH (08:22)
[2020-08-17] MEDS: METOPROLOL SUCCINATE 50 MG TAB XL PO SCH (08:22)
[2020-08-17] MEDS: DOXYCYCLINE HYCLATE TABLET 100 MG TAB PO SCH ×2 (08:22→20:43)
[2020-08-17 08:32] VITALS: BP 159/102
[2020-08-17 08:37] VITALS: BP 159/102
[2020-08-17] MEDS: CLONAZEPAM 1 MG TAB PO PRN ×3 (15:05→20:43)
[2020-08-17 16:10] VITALS: BP 143/102
[2020-08-17] MEDS: ENOXAPARIN SOD INJ 40 MG/0.4 ML SYR SC SCH (16:40)
[2020-08-17 20:21] VITALS: BP 144/97
[2020-08-17] MEDS: ACETAMINOPHEN 325 MG TAB PO PRN (20:44)
[2020-08-17] MEDS: CEFTRIAXONE 1 GM in SODIUM CHLORIDE 0.9% 50ML 50 ML IV SCH (20:50)
[2020-08-17 20:58] VITALS: BP 144/97
[2020-08-18] VITALS: BP 150/89
[2020-08-18] MEDS: IPRATROPIUM BROMIDE 0.02% 2.5 ML NEB NEB SCH ×2 (01:15→08:00)
[2020-08-18 04:00] VITALS: BP 161/96
[2020-08-18 08:13] VITALS: BP 151/90
[2020-08-18] MEDS: SALIVA SUBSTITUTE 45 ML LIQD MM SCH (08:13)
[2020-08-18] MEDS: DOXYCYCLINE HYCLATE TABLET 100 MG TAB PO SCH (08:14)
[2020-08-18] MEDS: LOSARTAN POTASSIUM 100 MG TAB PO SCH (08:14)
[2020-08-18] MEDS: PANTOPRAZOLE SOD 40 MG TABEC PO SCH (08:14)
[2020-08-18] MEDS: LACTULOSE SYRUP 20 GM/30 ML UDC PO SCH (08:14)
[2020-08-18] MEDS: ASPIRIN 81 MG CHEW TAB PO SCH (08:14)
[2020-08-18] MEDS: TAMSULOSIN HCL 0.4 MG CAP PO SCH (08:14)
[2020-08-18] MEDS: METOPROLOL SUCCINATE 50 MG TAB XL PO SCH (08:14)
[2020-08-18] MEDS: FENOFIBRATE 145 MG TAB PO SCH (08:14)
[2020-08-18] MEDS: DOCUSATE SODIUM 100 MG CAP PO SCH (08:14)
[2020-08-18] MEDS: FLUOXETINE HCL 20 MG CAP PO SCH (08:14)
[2020-08-18] MEDS: CLONAZEPAM 1 MG TAB PO PRN (08:15)
[2020-08-18] MEDS: INSULIN REGULAR, HUMAN 100 UNIT/1 ML 3ML VIAL SQ SCH (08:32)
[2020-08-18 08:41] VITALS: BP 151/90
== END 2020-08-18 10:36 | disposition home or self-care (01) | DRG 871 ==
LOC: ER 22:58 → ERHOLD 08-12 02:03 → MED/SURG2 08-12 03:43
PROVIDERS: ADMIT Internal Medicine; ATTEND Internal Medicine
DX: A41.9 Sepsis, unspecified organism (principal); J18.9 Pneumonia, unspecified organism; J96.01 Acute respiratory failure with hypoxia; F19.930 Other psychoactive substance use, unspecified with withdrawal, uncomplicated; E11.9 Type 2 diabetes mellitus without complications; I10 Essential (primary) hypertension; E66.01 Morbid (severe) obesity due to excess calories; Z86.19 Personal history of other infectious and parasitic diseases; R65.20 Severe sepsis without septic shock; Z68.34 Body mass index [BMI] 34.0-34.9, adult; E78.5 Hyperlipidemia, unspecified; K74.60 Unspecified cirrhosis of liver; F41.9 Anxiety disorder, unspecified; F32.9 Major depressive disorder, single episode, unspecified; G89.4 Chronic pain syndrome; G47.33 Obstructive sleep apnea (adult) (pediatric); Z79.82 Long term (current) use of aspirin; Z79.84 Long term (current) use of oral hypoglycemic drugs; Z20.822 Contact with and (suspected) exposure to COVID-19
CPT/HCPCS: 36415; 71045; 71046; 71260; 74177; 80048; 80053; 82140; 82550; 82553; 82948; 83036; 83518; 83605; 83735; 83880; 84100; 84443; 84484; 85025; 85379; 85610; 85730; 87040; 87070; 93005; 94640; 96372; 99284; J0360; J0456; J0696; J1650; J1817; J7030; J7512; Q9967; U0002

== ENCOUNTER → 2020-12-04 | Outpatient (CLI) | payer MEDICARE ==
[~2020-12-04] MED LIST changes: +ALBUTEROL0.63 MG/3 NEB; +ASPIRIN81 MG PO; +CLONAZEPAM0.5 MG PO; +CLONIDINE HCL0.1 MG PO; +FARXIGA5 MG PO; +GLIPIZIDE5 MG PO; +LASIX20 MG PO; +METOPROLOL SUCC50 MG PO; +NEURONTIN300 MG PO; +OMEGA 3 1,0001 EACH PO; +PROAIR DIGIHAL90 MCG INH
== END ==
LOC: CT 14:53
PROVIDERS: ATTEND Internal Medicine
DX: I69.951 Hemiplegia and hemiparesis following unspecified cerebrovascular disease affecting right dominant side (principal)
CPT/HCPCS: 70450

== ENCOUNTER → 2021-10-11 | Day surgery (SDC) | payer MEDICARE ==
[2021-10-09 14:58] LABS: BASOPHILS % 0.4 % (0.0-1.0); EOSINOPHILS # (AUTO) 0.2 (0.0-0.4); EOSINOPHILS % 2.6 % (0.0-6.0); HEMATOCRIT 40.6 % (38.2-49.6); HEMOGLOBIN 13.6 g/dL (14.0-18.0); LYMPHOCYTES # (AUTO) 1.4 (1.0-3.2); LYMPHOCYTES % 19.4 % (18.0-39.1); MEAN CORPUSCULAR HEMOGLOBIN 26.7 pg (28-32); MEAN CORPUSCULAR HGB CONC 33.5 g/dL (31-35); MEAN CORPUSCULAR VOLUME 79.8 fL (81-99); MONOCYTES # (AUTO) 0.5 (0.2-0.8); MONOCYTES % 6.5 % (4.4-11.3); NEUTROPHILS # (AUTO) 4.9 (2.1-6.9); NEUTROPHILS % 70.7 % (38.7-80.0); PLATELET COUNT 188 x10e3/uL (140-360); RED BLOOD COUNT 5.09 x10e6/uL (4.3-5.7); RED CELL DISTRIBUTION WIDTH 13.8 % (11.7-14.4)
[2021-10-09 15:16] LABS: INR 0.93; PROTHROMBIN TIME 13.3 seconds (11.9-14.5)
[2021-10-09 15:17] LABS: PARTIAL THROMBOPLASTIN TIME 25.1 seconds (23.8-35.5)
[2021-10-09 15:24] LABS: ALANINE AMINOTRANSFERASE 17 IU/L (0-55); ALBUMIN 4.1 g/dL (3.5-5.0); ALBUMIN/GLOBULIN RATIO 1.2 (0.8-2.0); ALKALINE PHOSPHATASE 46 IU/L (40-150); ANION GAP 15.3 mmol/L (8-16); BLOOD UREA NITROGEN 16 mg/dL (7-26); BUN/CREATININE RATIO 10 (6-25); CALCIUM 9.7 mg/dL (8.4-10.2); CARBON DIOXIDE 26 mmol/L (22-29); CHLORIDE 105 mmol/L (98-107); CREATININE, SERUM 1.67 mg/dL (0.72-1.25); GLUCOSE 260 mg/dL (74-118); POTASSIUM 4.3 mmol/L (3.5-5.1); SODIUM 142 mmol/L (136-145)
[~2021-10-11] MED LIST changes: +CARVEDILOL3.125 MG PO; +CLOPIDOGREL75 MG PO; +DEXAMETHASONE SOD PHOS 10 MG/1 ML VIAL ONE; +FENTANYL CITRATE/PF 100MCG/2 ML INJ ONE; +IOPAMIDOL 200 MG/ML 20 ML VIAL IT ONE; +LIDOCAINE HCL 1% 30ML-PF VIAL ONE; +MIDAZOLAM HCL 2 MG/2 ML VIAL ONE; +OZEMPIC0.25 MG/0. SC; +POVIDONE IODINE 0.05% 0.05 % ML PO ONE; +PROPOFOL IV EMULSION 10 MG/ML 20 ML VIAL ONE
[2021-10-11 08:05] VITALS: BP 148/100
== END | disposition home or self-care (01) ==
LOC: OR 05:42
PROVIDERS: ATTEND Physical Medicine & Rehabilitation Pain Medicine
DX: M54.16 Radiculopathy, lumbar region (principal); M47.896 Other spondylosis, lumbar region; M54.12 Radiculopathy, cervical region; M47.812 Spondylosis without myelopathy or radiculopathy, cervical region; R93.7 Abnormal findings on diagnostic imaging of other parts of musculoskeletal system; M51.26 Other intervertebral disc displacement, lumbar region; E11.9 Type 2 diabetes mellitus without complications; I10 Essential (primary) hypertension; R06.09 Other forms of dyspnea; E78.5 Hyperlipidemia, unspecified; E78.00 Pure hypercholesterolemia, unspecified; Z01.810 Encounter for preprocedural cardiovascular examination; Z01.812 Encounter for preprocedural laboratory examination; Z20.822 Contact with and (suspected) exposure to COVID-19; Z79.02 Long term (current) use of antithrombotics/antiplatelets; Z79.899 Other long term (current) drug therapy; Z79.84 Long term (current) use of oral hypoglycemic drugs; Z86.19 Personal history of other infectious and parasitic diseases; Z87.891 Personal history of nicotine dependence
CPT/HCPCS: 0223U; 36415 ×2; 64483; 64484 ×2; 80053; 82948; 85025; 85610; 85730; 93005; J1100; J2001; J2250; J2704; J3010; Q9967; 77003

== ENCOUNTER → 2021-12-27 | Day surgery (SDC) | payer MEDICARE ==
[~2021-12-27] MED LIST changes: -FENTANYL CITRATE/PF 100MCG/2 ML INJ ONE; +HYDROCODON-ACE1 EAC8 PO; +LIDOCAINE HCL 2% LOCAL INJ 5 ML SDV VIAL INJ ONE; -MIDAZOLAM HCL 2 MG/2 ML VIAL ONE; +PROPOFOL IV EMULSION 10 MG/ML 20 ML VIAL IV ONE; -PROPOFOL IV EMULSION 10 MG/ML 20 ML VIAL ONE
[2021-12-27 07:10] VITALS: BP 147/86
== END | disposition home or self-care (01) ==
LOC: OR 05:51
PROVIDERS: ATTEND Physical Medicine & Rehabilitation Pain Medicine
DX: M51.16 Intervertebral disc disorders with radiculopathy, lumbar region (principal); G89.29 Other chronic pain; E11.9 Type 2 diabetes mellitus without complications; I10 Essential (primary) hypertension; E78.5 Hyperlipidemia, unspecified; E78.00 Pure hypercholesterolemia, unspecified; E66.9 Obesity, unspecified; Z79.02 Long term (current) use of antithrombotics/antiplatelets; Z79.899 Other long term (current) drug therapy; Z68.31 Body mass index [BMI] 31.0-31.9, adult; Z87.891 Personal history of nicotine dependence; Z86.19 Personal history of other infectious and parasitic diseases
CPT/HCPCS: 36415; 64479; 82948; J1100; J2001 ×2; J2704; Q9967; 77003

== ENCOUNTER → 2022-07-11 | Day surgery (SDC) | payer MEDICARE ==
[~2022-07-11] MED LIST changes: +AMLODIPINE VALSARTAN PO; +FENTANYL CITRATE/PF 100MCG/2 ML INJ ONE; +LACTATED RINGER'S 1,000 ML ONE; +METOPROLOL SUCC25 MG PO; +MIDAZOLAM HCL 2 MG/2 ML VIAL ONE; -PROPOFOL IV EMULSION 10 MG/ML 20 ML VIAL IV ONE; +PROPOFOL IV EMULSION 10 MG/ML 20 ML VIAL ONE
[2022-07-11 06:55] VITALS: TEMP 97.3
[2022-07-11 07:10] VITALS: BP 130/83; PULSE 70; RESP 16; O2SAT 97
== END | disposition home or self-care (01) ==
LOC: OR 08:10
PROVIDERS: ATTEND Physical Medicine & Rehabilitation Pain Medicine
DX: M54.16 Radiculopathy, lumbar region (principal); M54.12 Radiculopathy, cervical region; E78.00 Pure hypercholesterolemia, unspecified; E11.9 Type 2 diabetes mellitus without complications; I10 Essential (primary) hypertension; Z01.810 Encounter for preprocedural cardiovascular examination; Z79.02 Long term (current) use of antithrombotics/antiplatelets; Z79.84 Long term (current) use of oral hypoglycemic drugs; Z79.899 Other long term (current) drug therapy; Z79.85 Long-term (current) use of injectable non-insulin antidiabetic drugs; Z87.891 Personal history of nicotine dependence
CPT/HCPCS: 36415; 64483; 64484 ×2; 82948; 93005; J1100; J2001 ×2; J2250; J2704; J3010; J7121; Q9967; 77003

== ENCOUNTER → 2024-08-27 | Outpatient (REF) | payer MEDICARE ==
[~2024-08-27] MED LIST changes: +CYMBALTA30 MG; -DEXAMETHASONE SOD PHOS 10 MG/1 ML VIAL ONE; -FENTANYL CITRATE/PF 100MCG/2 ML INJ ONE; -IOPAMIDOL 200 MG/ML 20 ML VIAL IT ONE; -LACTATED RINGER'S 1,000 ML ONE; -LIDOCAINE HCL 1% 30ML-PF VIAL ONE; -LIDOCAINE HCL 2% LOCAL INJ 5 ML SDV VIAL INJ ONE; -MIDAZOLAM HCL 2 MG/2 ML VIAL ONE; +OZEMPIC1 MG/0.71 SQ; -POVIDONE IODINE 0.05% 0.05 % ML PO ONE; +PREGABALIN75 MG PO; -PROPOFOL IV EMULSION 10 MG/ML 20 ML VIAL ONE
== END ==
LOC: US 07:18
PROVIDERS: ATTEND Nurse Practitioner Family
DX: Z86.19 Personal history of other infectious and parasitic diseases (principal); K76.0 Fatty (change of) liver, not elsewhere classified; K82.9 Disease of gallbladder, unspecified
CPT/HCPCS: 76705